=== PATIENT | male | born 1965 | race Caucasian/White ===

== ENCOUNTER 2023-07-14 07:57 | Outpatient (OUT) | payer MEDICARE, OTHER, SELFPAY ==
[2023-07-14 14:40] LABS: Chol HDL Ratio 2.7; Cholesterol 170 mg/dL (<=200); HDL Cholesterol 62 mg/dL (40-60); Triglycerides 111 mg/dL (<=150); VLDL CHOLESTEROL 22.2 mg/dL
== END 2023-07-14 07:58 | disposition home or self-care (01) ==
LOC: LAB 08:03
PROVIDERS: PCP Family Medicine; Visit Provider Nurse Practitioner
DX: E78.5 Hyperlipidemia, unspecified (principal)
CPT/HCPCS: 36415; 80061

== ENCOUNTER 2023-07-26 07:02 | Outpatient (OUT) | payer MEDICARE, OTHER, SELFPAY ==
--- NOTE | 2023-07-26 07:57 | CA_ITS ---
Patient: AYESHA MCKEON V. Exam Date: 07/26/2023 : 1965 Gender:M Ordering : BUNNY MORILLO Admission #: [id number] Family : Order #: [id number] CLICK HERE TO VIEW EXAM ECHOCARDIOGRAM REPORT PROCEDURE: CA ECHO DOPPLER COMPLETE INDICATIONS: Dyspnea COMPARISON: None. DESCRIPTION: COMPLETE ECHOCARDIOGRAM Real-time transthoracic echocardiography with 2D, M-mode, spectral and color flow Doppler performed. QUALITY: Technical quality was good. LEFT VENTRICLE: Normal chamber size. Borderline left ventricular hypertrophy. LV EF: Global left ventricular systolic function is hyperdynamic no significant wall motion abnormalities. Calculated left ventricular ejection fraction is 68%. DIASTOLIC: Norm diastolic function is indeterminate ATRIAL SEPTUM: Inadequately seen. LEFT ATRIUM: Mild dilatation. RIGHT ATRIUM: Mild dilatation. RIGHT VENTRICLE: Mild dilatation. Normal right ventricular systolic function. TRICUSPID VALVE: Normal mobility and thickness. No stenosis with mild regurgitation. Mild pulmonary hypertension. RVSP 35mmHg MITRAL VALVE: Normal mobility and thickness. No evidence of mitral valve stenosis. There is no mitral annular calcification. Mild mitral regurgitation. AORTIC VALVE: Normal trileaflet appearance. No visible sclerosis. Normal leaflet mobility. No evidence of aortic valve stenosis. Trivial aortic regurgitation. AORTIC ROOT: Normal diameter and appearance. PULMONIC VALVE: Normal thickness and mobility. No stenosis. Trivial regurgitation. PERICARDIUM: No evidence of pericardial effusion. IVC: Collapses with inspirations. Normal size. CONCLUSION: 1. Global left ventricular systolic function is hyperdynamic; visually estimated ejection fraction 65 to 70% 2. Borderline left ventricular hypertrophy 3. Diastolic function is indeterminate 4. Biatrial enlargement 5. The right ventricle is mildly dilated with normal systolic function 6. Mild tricuspid regurgitation; mildly elevated right ventricular systolic pressure 7. Mild mitral regurgitation Adult Echocardiography Procedure Report Left Ventricle LVEDD (3.7 - 5.6 cm): 4.65 cm LVESD (2.2 - 4.0 cm): 2.91 cm LVIVS thickness (0.6 - 1.2 cm): 1.04 cm LVPW thickness (0.5 - 1.0 cm): 1.06 cm e': 0.12 m/s E - e': 8.37 LVOT Max Gradient: 2.78 mm[Hg] LVOT Area (cm2): 0.83 m/s Peak Velocity (LVOT): 0.83 m/s Mean Velocity (LVOT): 0.57 m/s LVOT Diameter 1.90 cm Left Ventricular Ejection Fraction: 68.23 % Left Atrium LA Volume Index (2D A2C): 42.08 ml/m2 Left Atrium Systolic Dimension: 4.39 cm Mitral Valve MV E to A Ratio: 1.83 Mitral Valve A-Wave Peak Velocity: 0.55 m/s Mitral Valve E-Wave Peak Velocity: 1.01 m/s Right Ventricle RV Internal Diastolic Dimension: 4.10 cm Aorta AO Root Diam: 2.95 cm Ascending Ao Diam: 3.09 cm Aortic Valve AoV Area (Peak Ari): 1.78 cm2, 1.78 cm2 AoV Area (VTI): 1.82 cm2, 1.82 cm2 Peak Velocity(Antegrade Flow): 1.33 m/s Peak Gradient(Antegrade Flow): 7.04 mm[Hg] Mean Velocity(Antegrade Flow): 0.92 m/s Mean Gradient(Antegrade Flow): 3.87 mm[Hg] Velocity Time Integral: 32.61 cm Tricuspid Valve Peak Velocity (Regurgitant Flow): 2.20 m/s, 2.13 m/s, 2.85 m/s Pulmonic Valve Mean Gradient: 1.87 mm[Hg], 2.06 mm[Hg] Mean Velocity: 0.64 m/s, 0.67 m/s Peak Velocity: 0.93 m/s Peak Gradient: 3.33 mm[Hg], 3.57 mm[Hg] Right Atrium Right Atrium Systolic Pressure: 67.94 ml, 67.94 ml Dictated by: Deniz Valiente M.D. on 07/26/2023 at 15:20 Approved by: Deniz Valiente M.D. on 07/26/2023 at 15:25
== END 2023-07-26 07:03 | disposition home or self-care (01) ==
PROVIDERS: PCP Family Medicine; Visit Provider Internal Medicine Cardiovascular Disease
DX: R06.09 Other forms of dyspnea (principal); R60.0 Localized edema; I08.1 Rheumatic disorders of both mitral and tricuspid valves
CPT/HCPCS: 93306

== ENCOUNTER 2025-03-08 07:40 | Outpatient (OUT) | payer MEDICARE, OTHER, SELFPAY ==
--- NOTE | 2025-03-08 08:00 | CA_ITS ---
Patient Name: AYESHA MCKEON MR#: [id number] : 1965 Exam Date: 03/08/2025 Ordering Doctor: LUCAS SHRESTHA CNP ECHOCARDIOGRAM REPORT PROCEDURE: CA ECHO DOPPLER COMPLETE INDICATIONS: Coronary arteriosclerosis, h/o CABG, mitral valve regurgitation COMPARISON: None. DESCRIPTION: COMPLETE ECHOCARDIOGRAM Real-time transthoracic echocardiography with 2D, M-mode, spectral and color flow Doppler performed. QUALITY: Technical quality was good. LEFT VENTRICLE: Normal chamber size. Left ventricular wall thickness is upper normal limits. LV EF: Global left ventricular systolic function is normal; visually estimated ejection fraction is 55 to 60%. No significant wall motion abnormalities. DIASTOLIC: Normal diastolic function. ATRIAL SEPTUM: Visually appears intact. LEFT ATRIUM: Normal chamber size. RIGHT ATRIUM: Normal chamber size. RIGHT VENTRICLE: Normal chamber size. Decreased right ventricular systolic function. TRICUSPID VALVE: Normal mobility and thickness. No stenosis with mild regurgitation. Doppler studies reveal mildly (35-45) elevated right sided pressures. RVSP 37 mmHg MITRAL VALVE: Normal mobility and thickness. No evidence of mitral valve stenosis. There is no mitral annular calcification. Mild mitral regurgitation. AORTIC VALVE: Normal trileaflet appearance. No visible sclerosis. Normal leaflet mobility. No evidence of aortic valve stenosis. No aortic regurgitation. AORTIC ROOT: Normal diameter and appearance. Ascending aorta is normal in size. PULMONIC VALVE: Normal thickness and mobility. No stenosis. Trivial regurgitation. PERICARDIUM: No evidence of pericardial effusion. IVC: Collapses with inspirations. IVC is normal in size. CONCLUSION: 1. Global left ventricular systolic function is normal; visually estimated ejection fraction is 55 to 60% 2. The right ventricle is normal in size with reduced systolic function 3. Left ventricular wall thickness is upper normal limits 4. Normal diastolic function 5. The left atrium is normal in size 6. Mild tricuspid regurgitation 7. Mildly elevated right ventricular systolic pressure 8. Mild mitral regurgitation Adult Echocardiography Procedure Report Left Ventricle LVEDD (3.7 - 5.6 cm): 4.48 cm LVESD (2.2 - 4.0 cm): 3.21 cm LVIVS thickness (0.6 - 1.2 cm): 1.21 cm LVPW thickness (0.5 - 1.0 cm): 0.97 cm e': 0.12 m/s E - e': 7.68 LVOT Max Gradient: 3.12 mm[Hg] LVOT Area (cm2): 0.88 m/s Peak Velocity (LVOT): 0.88 m/s Mean Velocity (LVOT): 0.60 m/s LVOT Diameter 2.15 cm Left Atrium LA Volume Index (2D A2C): 32.04 ml/m2 Left Atrium Systolic Dimension: 4.78 cm Mitral Valve MV E to A Ratio: 1.72 Mitral Valve A-Wave Peak Velocity: 0.56 m/s Mitral Valve E-Wave Peak Velocity: 0.96 m/s Right Ventricle Aorta AO Root Diam: 3.13 cm Ascending Ao Diam: 3.23 cm Aortic Valve AoV Area (Peak Ari): 2.88 cm2, 2.88 cm2 AoV Area (VTI): 2.85 cm2, 2.85 cm2 Peak Velocity(Antegrade Flow): 1.11 m/s Peak Gradient(Antegrade Flow): 4.93 mm[Hg] Mean Velocity(Antegrade Flow): 0.73 m/s Mean Gradient(Antegrade Flow): 2.46 mm[Hg] Velocity Time Integral: 25.36 cm Tricuspid Valve Peak Velocity (Regurgitant Flow): 2.94 m/s Pulmonic Valve Mean Gradient: 2.39 mm[Hg] Mean Velocity: 0.72 m/s Peak Velocity: 1.04 m/s, 1.02 m/s Peak Gradient: 4.18 mm[Hg], 4.33 mm[Hg] Right Atrium Right Atrium Systolic Pressure: 44.72 ml, 44.72 ml Dictated by: Deniz Valiente M.D. on 03/08/2025 at 14:47 Approved by: Deniz Valiente M.D. on 03/08/2025 at 14:51
== END 2025-03-08 07:41 | disposition home or self-care (01) ==
LOC: CARD 07:41
PROVIDERS: PCP Family Medicine; Visit Provider Nurse Practitioner Family
DX: I25.10 Atherosclerotic heart disease of native coronary artery without angina pectoris (principal); I49.01 Ventricular fibrillation; Z95.1 Presence of aortocoronary bypass graft; I47.20 Ventricular tachycardia, unspecified
CPT/HCPCS: 93306

== ENCOUNTER 2025-03-29 08:47 | Outpatient (OUT) | payer MEDICARE, OTHER, SELFPAY ==
--- OUTSIDE RECORDS SUMMARY | 2024-04-17 05:00 | XMS_ITS | Encounter Summary ---
Author Name [facility] Organization [facility] Address [address] [place] [id number] Care Team Providers Care Product Development Scientist Name Role Phone KACY TURNER Primary Care Provider Unavail able Insurance Providers: All historical and current Section Date Range: From patient's date of to the date document was created. This section includes the names of all active insurance providers for the patient. Insurance Provider Type of Coverage Plan Name Start of Policy Coverage End of Policy Coverage Group Number Member ID Insurance Provider's Telephone Number Policy Muñiz's Name Patient's Relationship to Policy Muñiz MEDICARE (WNR) MEDICARE (M) PART A Aug 18, 2021 PART A [id number] [phone] AYESHA MCKEON PATIENT MEDICARE (WNR) MEDICARE (M) PART B Aug 18, 2021 PART B [id number] [phone] AYESHA MCKEON PATIENT Selected Encounter This section includes the information on record at [place] for the Encounter. Date/Time Encounter Type Encounter Description Reason Provider Source Apr 17, 2024 09:00 AM DETERMINE REFRACTIVE STATE OPTOMETRY ICD-10-CM H25.13 Age-related nuclear cataract, bilateral RIKY CORREA [facility] Encounter Template Text not used by [facility] Assessments - Encounter Diagnoses This section includes the primary and secondary diagnoses documented for the Encounter. Date/Time Primary/Secondary Diagnosis Diagnosis Name Provider Source Apr 17, 2024 09:28 AM PRIMARY Age-related nuclear cataract, bilateral [facility] Apr 17, 2024 09:28 AM SECONDARY Hypermetropia, bilateral [facility] Apr 17, 2024 09:28 AM SECONDARY Presbyopia [facility] Plan of Treatment: Future Appointments (+ 6 months) and Future Tests (+/- 45 days) The Plan of Treatment section includes future care activities for the patient from all [place] treatmentfacilities. This section includes future appointments and future orders which are active, pending or scheduled. Future Appointments This section includes appointments that were scheduled to occur 6 months from the date of the Encounter, up to a maximum of 20 appointments. The data comes from all [place] treatment facilities. Appointment Date/Time Appointment Type Appointme nt Facility Name Sep 18, 2024 08:30 AM AMBULATORY - NONE [facility] Sep 25, 2024 08:30 AM AMBULATORY - NONE [facility] Social History: Smoking Status (Most current) and Tobacco Use (All prior to encounter date) This section includes the most current, and the historical, smoking and tobacco- related health factors from the [place] facility where the Encounter took place. Current Smoking Status This section includes the most current smoking, or tobacco-related health factor, from the [facility] facility where the Encounter took place. Date/Time Current Smoking Status Comment Facil ity Sep 30, 2023 11:00 AM VA-TOBACCO NEVER USED [facility] Tobacco Use History This section includes a history of the smoking, or tobacco-related health factors, that were collected on or before the date of the Encounter. The data comes from the [place] facility where the Encounter took place. Date/Time Smoking Status/Tobacco Use Comment F acility Aug 25, 2022 09:00 AM VA-TOBACCO NEVER USED [facility] Sep 02, 2021 09:00 AM VA-TOBACCO NEVER USED [facility] Aug 01, 2018 11:39 AM VA-TOBACCO NEVER USED [facility] Jun 29, 2018 09:23 AM VA-TOBACCO NEVER USED [facility] Sep 06, 2015 08:47 AM LIFETIME NON-USER OF TOBACCO [facility] Jan 18, 2006 01:16 PM TOBACCO [place] NON USER [facility] Encounter Notes: All associated encounter notes This section contains the clinical notes associated to the Encounter. Date/Time Encounter Note(s) Provider Source Apr 17, 2024 08:57 AM OPTOMETRY NOTE: LOCAL TITLE: OPTOMETRY DISTRICT RANGER NOTE STANDARD TITLE: OPTOMETRY NOTE DATE OF NOTE: APR 17, 2024@08:57 ENTRY DATE: APR 17, 2024@08:57:25 AUTHOR: SAYRA HAINES EXP COSIGNER: RIKY CORREA URGENCY: STATUS: COMPLETED 59 Year old vet here today KATEY Last Eye exam: April 26 2023 GU/OPT Dr Correa Chief Complaint: patient reports no visual complaints or concerns today. Ocular History: (-)Surgery/trauma Ocular Medications: none Family Ocular History: Blindness/glaucoma/ARMD (-) Medical History: H/O ventricular fibrillation 07/26/2019 H/O: pacemaker in situ 05/27/2016 Coronary arteriosclerosis 09/06/2015 Mixed hyperlipidemia 09/06/2015 Family History of Ischemic Heart 01/18/2006 Active Medications: ATORVASTATIN CALCIUM 80MG TAB Qty: 90 ACTIVE Issu:08-29-20 METOPROLOL TARTRATE 25MG TAB Qty: 90 ACTIVE Issu:08-23-20 CLOPIDOGREL 75MG TAB Qty: 90 for 90 ACTIVE Issu:08-23-20 COENZYME Q10 CAP/TAB ASPIRIN (ENTERIC COATED) TAB,EC MULTIVITAMINS AND MINERALS (CENTRUM) TAB CHONDROITIN/GLUCOSAMINE CAP/TAB Allergies: patient states KNDA Current Rx: OD: +2.50 -0.50 X53 OS: +2.00 -0.25 X129 ADD: +2.25 VA: sRx OD: 20/ 20 OS: 20/ 20 EOMs: FULL OU PUPILS: ERRL -APD OU CF: FULL OU /jose/ SAYRA HAINES OPTOMETRY DISTRICT [facility]ER Signed: 04/17/2024 08:58 /es/ RIKY CORREA LODE MINER Cosigned: 04/17/2024 09:00 [facility]IN[facility] Apr 17, 2024 08:51 AM OPTOMETRY OUTPATIE NT NOTE: LOCAL TITLE: OPTOMETRY OUTPATIENT CLINIC NOTE (T) STANDARD TITLE: OPTOMETRY OUTPATIENT NOTE DATE OF NOTE: APR 17, 2024@08:51 ENTRY DATE: APR 17, 2024@08:51:49 AUTHOR: RIKY CORREA EXP COSIGNER: URGENCY: STATUS: COMPLETED 59 yowm here today for KATEY Last Eye exam: April 26, 2023 GU/OPT Dr Correa Chief Complaint: patient reports no visual complaints or concerns today Ocular History: (-) Surgery/trauma Ocular Medications: None Family Ocular History: Blindness/glaucoma/ARMD (-) Medical History: H/O ventricular fibrillation 07/26/2019 H/O: pacemaker in situ 05/27/2016 Coronary arteriosclerosis 09/06/2015 Mixed hyperlipidemia 09/06/2015 Family History of Ischemic Heart 01/18/2006 Active Medications: ATORVASTATIN CALCIUM 80MG TAB Qty: 90 ACTIVE Issu:08-29-20 METOPROLOL TARTRATE 25MG TAB Qty: 90 ACTIVE Issu:08-23-20 CLOPIDOGREL 75MG TAB Qty: 90 for 90 ACTIVE Issu:08-23-20 COENZYME Q10 CAP/TAB ASPIRIN (ENTERIC COATED) TAB,EC MULTIVITAMINS AND MINERALS (CENTRUM) TAB CHONDROITIN/GLUCOSAMINE CAP/TAB Allergies: patient states NKA Current Rx: OD: +2.50 -0.50 X053 OS: +2.00 -0.25 X129 ADD: +2.25 VA: cRx OD: 20/20 OS: 20/20 EOMs: FULL OU PUPILS: ERRL -APD OU CF: FULL OU Refraction: OD: +2.00 -0.50 x051 VA: 20/20 OS: +1.75 DS VA: 20/20 ADD: +2.25 Slit Lamp Exam: Lids and lashes: clear OU Conjunctiva: clear OU Cornea: clear OU Anterior chamber: d/q OU Angles: 4 n/t OU Iris: clear, (-) gladys OU Lens: OD: 1 NS OS: 1 NS Obtained informed consent from patient for use of DPA's, educated patient about side effects. 1 gt. Fluress OU, 1 gt. 1.0% Wheeler. OU, 1 gt. 2.5 % Phenyl. OU @ 9:07 AM Tonometry (A): @ 9:07 AM OD/OS: 17/18 (04/17/24) DFE: C/D: OD: 0.20/0.20 OS: 0.20/0.20 Posterior pole: clear OU Vessels: normal course/caliber OU Vitreous: clear OU Periphery: (-) holes/tears 360 OU Assessment/Plan: 1. Hyperopia c presb OU. Rx released to [facility]. 2. Nuclear Cataracts OU - stable. Monitor. 3. Int ocular health clear OU. Monitor 1 year c KATEY. RTC: 1 year KATEY /jose/ RIKY CORREA LODE MINER Signed: 04/17/2024 09:28 [facility]
--- OUTSIDE RECORDS SUMMARY | 2024-09-25 04:30 | XMS_ITS | Encounter Summary ---
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 Date/Time Encounter Type Encounter Description Reason Provider Source Sep 25, 2024 08:30 AM OFFICE O/P EST MOD 30 MIN PRIMARY CARE/MEDICINE ICD-10-CM E78.2 Mixed hyperlipidemia CORTNEY SUNSHINE Encounter Template Text not used by [place] Assessments - Encounter Diagnoses This section includes the primary and secondary diagnoses documented for the Encounter. Date/Time Primary/Secondary Diagnosis Diagnosis Name Provider Source Sep 25, 2024 08:51 AM PRIMARY Mixed hyperlipidemia CORTNEY SUNSHINE CB Sep 25, 2024 08:51 AM SECONDARY Athscl heart disease of [place] coronary artery w/o ang pctrs CORTNEY SUNSHINE CB Sep 25, 2024 08:51 AM SECONDARY Encounter for immunization [facility] SUNSHINE [facility] Sep 25, 2024 08:51 AM SECONDARY Presence of automatic (implantable) cardiac defibrillator [facility] SUNSHINE [facility] Sep 25, 2024 08:51 AM SECONDARY Ventricular fibrillation CORTNEY SUNSHINE [facility] Lab Results: +/- 30 days of the encounter This section includes the Chemistry and Hematology Lab Results [facility] record with [facility] for the [facility]. Radiology Reports and Pathology Reports are provided separately, in subsequent sections. Lab Results This section contains the Chemistry/Hematology Results that were resulted 30 days before or 30 daysafter the date of the Encounter. Date/Time Source Result Type Result - Unit Interpretation Reference Range Specimen Type Comment Sep 18, 2024 08:31 AM [facility] LIPID PROFILE PLASMA Specimen Type: PLASMA Comment: DLDLREF RANGE: NEAR OR ABOVE OPTIMAL: 100-129 mg/dL BORDERLINE DLDLHIGH: 130-159 mg/dL HIGH: 160-189 mg/dL VERY HIGH: >=190 TRIG REF RANGE: BORDERLINE HIGH: 150-199 mg/dL HIGH: 200-499 mg/dL TRIG VERY HIGH: >=500 mg/dL CREA eGFR was calculated using the CKD-EPI 2020 equation. CHOL REF RANGE: BORDERLINE HIGH: 200-239 mg/dL HIGH: >=240 mg/dL Ordering Provider: CORTNEY SUNSHINE Report Released Date/Time: Sep 30, 2023 11:36 AM Reporting Lab: [address] [id number] Performing Lab: [address] [phone] CHOLESTEROL 163 mg/dL <199 LDL CHOLESTEROL 93 mg/dL <99 HDL CHOLESTEROL 60 mg/dL >60 TRIGLYCERIDE 112 mg/dL <149 Sep 18, 2024 08:31 AM [facility] MAGNESIUM PLASMA Specimen Type: PLASMA Comment: DLDLREF RANGE: NEAR OR ABOVE OPTIMAL: 100-129 mg/dL BORDERLINE DLDLHIGH: 130-159 mg/dL HIGH: 160-189 mg/dL VERY HIGH: >=190 TRIG REF RANGE: BORDERLINE HIGH: 150-199 mg/dL HIGH: 200-499 mg/dL TRIG VERY HIGH: >=500 mg/dL CREA eGFR was calculated using the CKD-EPI 2020 equation. CHOL REF RANGE: BORDERLINE HIGH: 200-239 mg/dL HIGH: >=240 mg/dL Ordering Provider: CORTNEY SUNSHINE Report Released Date/Time: Sep 30, 2023 11:36 AM Reporting Lab: [address] [id number] Performing Lab: [place] [phone] MAGNESIUM 2.3 mg/dL 1.6-2.6 Sep 18, 2024 08:31 AM [facility] PROSTATE SPECIFIC ANTIGEN SERUM Speci men Type: SERUM No comment entered. Ordering Provider: CORTNEY SUNSHINE Report Released Date/Time: Sep 30, 2023 11:36 AM Reporting Lab: [place] [phone] Performing Lab: [place] [phone] PROSTATE SPECIFIC ANTIGEN 0.77 ng/mL <4. 00 Sep 18, 2024 08:31 AM [facility] CBC BLOOD Specimen Type: BLOOD No comment entered. Ordering Provider: CORTNEY SUNSHINE Report Released Date/Time: Sep 30, 2023 11:36 AM Reporting Lab: [address] [phone] Performing Lab: [place] [phone] WBC COUNT 6.1 10*3/uL 3.6-11.0 RBC COUNT 5.06 10*6/uL 4.47-5.83 HGB 16.2 g/dL 13.6-17.4 HCT 48.6 40.0-51.0 MCV 96.0 fL 80.0-96.0 MCH 32.1 pg H 27.0-31.0 MCHC 33.4 g/dL 31.5-36.5 PLT 164 10*3/uL 150-400 LYMPHS % 29.6 21.0-51.0 MONOCYTES % 9.5 H 4.0-8.0 NUCLEATED RBC/100WBC 0.0 /100{WBCs} RDW 12.5 11.2-15.8 NEUTROPHIL % 53.8 L 54.0-78.0 EOSINOPHIL % 6.4 H 0.0-3.0 BASOPHIL % 0.7 0.0-3.0 ABSOLUTE LYMPHOCYTE COUNT 1.8 10*3/uL 0. 8-5.0 ABSOLUTE NEUTROPHIL COUNT 3.3 10*3/uL 1. 9-8.6 ABSOLUTE BASOPHIL COUNT 0.0 10*3/uL 0.0- 0.3 ABSOLUTE MONOCYTE COUNT 0.6 10*3/uL 0.1- 0.9 ABSOLUTE EOSINOPHIL COUNT 0.4 10*3/uL H 0. 0-0.3 MPV 10.4 fL 7.4-11.4 Sep 18, 2024 08:31 AM [facility] COMPREHENSIVE METABOLIC PANEL PLASMA S pecimen Type: PLASMA Comment: DLDLREF RANGE: NEAR OR ABOVE OPTIMAL: 100-129 mg/dL BORDERLINE DLDLHIGH: 130-159 mg/dL HIGH: 160-189 mg/dL VERY HIGH: >=190 TRIG REF RANGE: BORDERLINE HIGH: 150-199 mg/dL HIGH: 200-499 mg/dL TRIG VERY HIGH: >=500 mg/dL CREA eGFR was calculated using the CKD-EPI 2020 equation. CHOL REF RANGE: BORDERLINE HIGH: 200-239 mg/dL HIGH: >=240 mg/dL Ordering Provider: CORTNEY SUNSHINE Report Released Date/Time: Sep 30, 2023 11:36 AM Reporting Lab: [address] [phone] Performing Lab: [address] [phone] ALBUMIN 4.7 g/dL 3.5-5.2 ALKALINE PHOSPHATASE 82 U/L 40-150 ALT/SGPT 42 U/L <55 AST/SGOT 35 U/L H 5-34 BUN 15 mg/dL 8.4-25.7 CALCIUM 9.3 mg/dL 8.8-10.0 CREATININE 1.0 mg/dL 0.72-1.25 CO2 25 mmol/L 22-29 GLUCOSE 96 mg/dL 74-100 PROTEIN, TOTAL 6.7 g/dL 6.4-8.3 SODIUM 138 mmol/L 136-145 CHLORIDE 106 mmol/L 98-107 BILIRUBIN, TOTAL 0.7 mg/dL 0.2-1.2 POTASSIUM 4.7 mmol/L 3.5-5.1 ANION GAP 12.0 mmol/L 10-20 EGFR (CALCULATED) 86.0 mL/min Immunizations: All administered on the encounter date This section contains immunizations associated to the Encounter. Immunization Series Date Issued Administered By Site Reaction Lot Number [id number] Drug Telephone Technician Comment(s) Source INFLUENZA, SPLIT VIRUS, TRIVALENT, PF Sep 25, 2024 RIKY PEOPLES LEFT DELTO ID [id number] AT [place], Patient tolerated injection well. [facility] Social History: Smoking Status (Most current) and Tobacco Use (All prior to encounter date) This section includes the most current, and the historical, smoking and tobacco- related health factors from the [place] facility where the Encounter took place. Current Smoking Status This section includes the most current smoking, or tobacco-related health factor, from the [place] facility where the Encounter took place. Date/Time Current Smoking Status Comment Facil ity Sep 30, 2023 11:00 AM [facility] NEVER USED [facility] Tobacco Use History This section includes a history of the smoking, or tobacco-related health factors, that were collected on or before the date of the Encounter. The data comes from the [place] facility where the Encounter took place. Date/Time [...] the Encounter. Date/Time Encounter Note(s) Provider Source Sep 25, 2024 08:24 AM INTERNAL MEDICINE OUTPATIENT NOTE: LOCAL TITLE: PRIMARY CARE OUTPATIENT NOTE (T) STANDARD TITLE: INTERNAL MEDICINE OUTPATIENT NOTE DATE OF NOTE: SEP 25, 2024@08:24 ENTRY DATE: SEP 25, 2024@08:24:21 AUTHOR: CORTNEY SUNSHINE COSIGNER: URGENCY: STATUS: COMPLETED PRIMARY CARE OUTPATIENT NOTE (T) Has ADDENDA In-person Note Emergency contact number obtained/confirmed. 59yo [place] Reason for Visit: cc: annual visit. cont with current meds. off aspirin per ranger aide. watching diet. stays physically active. denies any use of tobacco products. aver 2 drinks, 4 nights per week. aicd has not discharged hpi: 59y w/m with hx of mixed hyperlipidemia, cad with 3v cabg, vfib, s/p pacer/aicd. lmd - dr. delgado. cardio - dr. jay at [place] [facility] Active Problems PROBLEM LAST MOD PROVIDER H/O ventricular fibrillation 07/26/2019 CORTNEY SUNSHINE H/O: pacemaker in situ 05/27/2016 FLORECITA DAMON 2013 Coronary arteriosclerosis 09/06/2015 FLORECITA DAMON Mixed hyperlipidemia (SNOMED CT [id number]) 09/06/2015 FLORECITA DAMON Family History of Ischemic Heart Disease 01/18/2006 FLORECITA DAMON REVIEW OF SYSTEMS: const: (-) fever (-)chills (-)fatigue (-) changes in weight (-)night sweats heent: (-)headache (-)vision changes (-)hearing changes (-)tinnitis (-) earache (-)sore throat (-)nasal congestion (-)dysphagia (-odynophagia (-)hoarseness neck: (-)pain (-)stiffness (-)swelling lymph: (-)swollen (-)tender (-) cervical (-)axillary (-)inguinal endo: (-)polyuria (-)polydipsia (-)polyphagia (-)fatigue (-)weight gain/loss (-)heat or cold intolerance cor: (-)cp (-)sob (-)dizziness (-)palpitations (-)jo (-)edema (-)pnd (-)jo ()orthopnea pulm: (-)cough (-)congestion (-)sob (-)wheezing (-)pain with breathing (-)hemoptysis gi: (-)abd pain (-)nausea (-)vomitting (-)dysphagia (-)constipation (-) diarrhea (-)blood in stool (-)change in stool (-)dark stools (-)mucus in stool gu: (-)dysuria (-)frequency (-)urgency (-)malodorous (-)dribbling (-) hematuria (-)nocturia msk: (-)muscle pain (-)weakness (-)spasms (-)muscle tone (+)back pain (-)joint pain neuro: (-)headache (-)change in vision (-)weakness (-)change in memory (-)seizures (-)abnormal movements (-) tremors (-)radiculopathy integ: (-)rash (-)lesions (-)itching (-)xerosis psyche: (-)anxiety (-)depression (-)ptsd PATIENT ALLERGIES DETAILED ALLERGIES/ADVERSE REACTIONS No Known Allergies AMRS - MEDS (REC SUCCINCT) Active and Recently Inpatient, Outpatient and Clinic Medications (including Supplies): Active Outpatient Medications Status ======= 1) CLOPIDOGREL BISULFATE 75MG TAB TAKE ONE TABLET BY ACTIVE MOUTH EVERY DAY 2) EZETIMIBE 10MG TAB TAKE ONE TABLET BY MOUTH EVERY DAY ACTIVE 3) METOPROLOL TARTRATE 25MG TAB TAKE ONE-HALF TABLET BY ACTIVE MOUTH TWICE A DAY 4) ROSUVASTATIN CA 40MG TAB TAKE ONE TABLET BY MOUTH AT ACTIVE BEDTIME Active Non-VA Medications Status ======= 1) Non-VA ASPIRIN 81MG EC TAB 81MG MOUTH EVERY DAY ACTIVE 2) Non-VA CENTRUM MULTIVITAMINS AND MINERALS 1 TABLET ACTIVE MOUTH EVERY DAY 3) Non-VA CHONDROITIN/GLUCOSAMINE CAP/TAB 1 CAP/TAB ACTIVE MOUTH EVERY DAY 4) Non-VA COENZYME Q10 CAP/TAB MOUTH EVERY DAY, WITH ACTIVE BREAKFAST 8 Total Medications PHYSICAL EXAM: Vital Signs: T: 97.2 F [36.2 C] (09/25/2024 08:21) P: 65 (09/25/2024 08:21) R: 16 (09/25/2024 08:21) BP: 110/74 (09/25/2024 08:21) Pain: 0 (09/25/2024 08:21) Height: 68 in [172.7 cm] (08/25/2022 09:00) Weight: 200.4 lb [90.90 kg] (09/25/2024 08:21) Pulse Ox: 98% (09/25/2024 08:21) PE gen: 59y w/m alert ox4, well-groomed and dressed, ambulatory without assistive devices heent: normocephalic anicteric perrla eomi (+)corrective lenses. nares patent. eacs/tms without mayo, bulging or retractions. oral mucosa/hypopharynx moist and pink. uvula midline. no oral lesions noted neck: supple. trachea midline. no bruits noted lymph: no ant/post cerv adenopathy noted endo: no thyromegaly noted cor: hrrr without m, c or g chst: ctab. chst sym. (+)pacer/aicd left ant mid axillary area abd: soft, nt, nd, bs x4 ausc. no bruits/organomegaly noted msk: (+)5/5 ue/le prox and distally integ: no rashes/lesions noted neuro: pt alert ox4, perrla, eomi, cn 2-12 intact. gait normal. no tremors/abnormal movts noted psyche: mood/affect pleasant. recent/remote memory intact. ASSESSMENT/PLAN: 1) mixed hyperlipidemia- cont with rosuvastatin and zetia. reviewed a heart healthy diet. daily exercise 2) hx of cad with 3v cabg- asym. cont with asa/plavix/statin and bb. followed per cardio 3) hx of v fib - s/p pacer/aicd- asym. cont with current meds. keep f/u with cardio as scheduled. inst pt to call 911 or have someone drive him immed to nearest [facility] depart for eval if aicd should discharge 4) meds and labs reviewed with pt. copies provided to pt 5) reviewed a heart healthy diet of no added salt, diet low in fat, chol and processed foods. increase fluids, fruits, veg, fiber and bran in diet. daily exercise for 30 min, increase as tolerated HEALTH MAINTENANCE/CLINICAL REMINDERS: Clinical Reminders Activity Sexual Orientation: The patient thinks of their sexual orientation as: Straight or Heterosexual Avg Risk Colorectal Cancer Screen: AVERAGE RISK colorectal cancer screening is due based on information available to this clinical reminder FOBT/FIT (Fecal Immunochemical Testing) has been ordered. See order tab for details. MEDICATION RECONCILIATION Medication Reconciliation report reviewed and discussed with patient/caregiver. [facility] prescription medications, non-VA prescription medications, OTC and herbal medications reviewed: Patient/caregiver verifies that the list is complete and accurate and voices understanding. FOLLOW-UP: annual with labs 1-2 wks prior including cbc, cmp, mg, lipids and psa I am the Attending Physician. TOTAL TIME SPENT: Spent 26inutes in care of this patient today including review of records, exam, and placing orders. /jose/ CORTNEY SUNSHINE PHYSICIAN Signed: 09/25/2024 08:51 09/25/2024 ADDENDUM STATUS: COMPLETED Patient given FIT Kit and instructed to collect stool specimen next bowel movement, place date of specimen collection on vial, and mail same day. Patient verbalized understanding and agreed. /deborah PEOPLES LICENSED PRACTICAL NURSE Signed: 09/25/2024 09:28 12/07/2024 ADDENDUM STATUS: COMPLETED Telephone call placed to patient to remind to complete FIT Kit unanswered. LVM to return call. /deborah PEOPLES LICENSED PRACTICAL NURSE Signed: 12/07/2024 13:30 12/22/2024 ADDENDUM STATUS: COMPLETED Contacted vet and reminded to complete FIT kit. Vet verbalized understanding and agreed. /deborah PEOPLES LICENSED PRACTICAL NURSE Signed: 12/22/2024 14:06 [facility] Sep 25, 2024 08:23 AM PRIMARY CARE NURSI ARMANDO NOTE: LOCAL TITLE: OUTPATIENT NURSING INTAKE NOTE (T) STANDARD TITLE: PRIMARY CARE NURSING NOTE DATE OF NOTE: SEP 25, 2024@08:23 ENTRY DATE: SEP 25, 2024@08:23:14 AUTHOR: RIKY PEOPLES COSIGNER: URGENCY: STATUS: COMPLETED Hemoglobin A1C Results: No Hemoglobin A1C Results Review Allergies Allergies reviewed and updated per protocol. ALLERGIES/ADVERSE REACTIONS No Known Allergies MEDICATION LIST REVIEW REPORT Patient states no change in documented OTC/Herbals at this visit. 1. Has the patient been feeling sad or distressed? No 2. Has the patient been having personal or family problems? No 3. Has the patient been experiencing worry and/or stress? No 4. Has the patient been having problems with drugs and/or alcohol? No 5. [place] Crisis Line pocket card was provided to patient. No/patient declined [facility] MAP ([place] [place], [employer]) What matters most to you? Comment: Family Clinical Reminders Activity Alcohol Use Screen (AUDIT-C): Alcohol Screen: SCREEN FOR ALCOHOL (AUDIT-C) An alcohol screening test (AUDIT-C) was negative (score=4). 1. How often did you have a drink containing alcohol in the past year? Consider a drink to be a 12 ounce can or bottle of regular beer, 8 ounces of malt liquor, a 5 ounce glass of table wine, or a 1.5 ounce shot of liquor (like scotch, gin, or vodka). Four or more times a week 2. How many drinks containing alcohol did you have on a typical day when you were drinking in the past year? One or two drinks 3. How often did you have six or more drinks on one occasion in the past year? Never BMI Screening: At this visit, the health risks of obesity were reviewed and discussed with the patient, and the benefits of a weight management treatment program, such as [facility] was discussed and offered to the patient. Patient declines referral. After discussing the health risks of obesity and offering a referral to [facility] or another weight loss program outside the [facility], the patient DECLINES REFERRAL to [facility] or other weight loss program at this time. COVID-19 Immunization: Refused Pfizer Monovalent COVID-19 vaccine Immunization: COVID-19 (PFIZER), MRNA, LNP-S, PF, AMINA-SUCROSE, 30 MCG/0.3 ML (AGES 12+ YEARS) Refusal Reason: PATIENT DECISION Patient refuses all immunization(s) in the COVID-19 group Date Documented: 09/25/24 08:25 Depression Screening: Perform PHQ-2 A PHQ-2 screen was performed. The score was 0 which is a negative screen for depression. Over the past two weeks, how often have you been bothered by the following problems? 1. Little interest or pleasure in doing things Not at all 2. Feeling down, depressed, or hopeless Not at all Influenza Immunization: Influenza, Standard-Dose, Trivalent, Preservative Free (Fluarix-Syringe) Administered: INFLUENZA, SPLIT VIRUS, TRIVALENT, PF Date Administered: Sep 25, 2024 08:31 Telephone Technician: WUT Lot: [id number] Exp Date: Apr 16, 2025 [facility]: [phone] Admin Route/Site: INTRAMUSCULAR/LEFT DELTOID Dosage: 0.5mL Vaccine Information Statement(s): INFLUENZA(FLU) VACC(INACTIVATED OR RECOMBINANT)VIS May 23, 2021 ([place]) Order By: Policy Administered By: Riky Peoples Comment: Patient tolerated injection well. The Influenza Vaccine Information Statement (VIS) was reviewed with the patient/caregiver which lists the benefits and risks of the vaccine and the risks of not receiving the Influenza vaccine. The patient/caregiver denied any prior severe reaction to this vaccine or its components or a severe allergic reaction, such as anaphylaxis, to any vaccine or any injectable therapy. The patient/caregiver gave verbal consent to receive the vaccine. The patient was advised to remain in the facility for 15 minutes post vaccination. Patient Education Documentation: LEARNING NEEDS ASSESSMENT: Learning Preference: Hands-on Barriers to Learning: No Barriers to Learning Social Influences Related to Educational Needs: No social barriers to learning PTSD Screening: PC-PTSD-5 A PTSD screening test (PC-PTSD-5) was negative (score=0). IN THE PAST MONTH, have you ever had any experience that was so frightening, horrible or traumatic. For example: A serious accident or fire a physical or sexual assault or abuse An earthquake or flood A war Seeing someone be killed or seriously injured Having a loved one through homicide or suicide 1. Have you ever experienced this kind of event? NO 2. Had nightmares about the event(s) or thought about the event(s) when you did not want to? Response not required due to responses to other questions. 3. Tried hard not to think about the event(s) or went out of your way to avoid situations that reminded you of the event(s)? Response not required due to responses to other questions. 4. Been constantly on guard, watchful, or easily startled? Response not required due to responses to other questions. 5. [place] numb or detached from people, activities, or your surroundings? Response not required due to responses to other questions. 6. [place] guilty or unable to stop blaming yourself or others for the event(s) or any problems the event(s) may have caused? Response not required due to responses to other questions. Suicide Screen: C-SSRS Screening [place] Suicide Severity Rating Scale (C-SSRS) screener 1. Over the past month, have you wished you were or wished you could go to sleep and not wake up? No 2. Over the past month, have you had any actual thoughts of killing yourself? No 3. Over the past month, have you been thinking about how you might do this? Response not required due to responses to other questions. 4. Over the past month, have you had these thoughts and had some intention of acting on them? Response not required due to responses to other questions. 5. Over the past month, have you started to work out or worked out the details of how to kill yourself? Response not required due to responses to other questions. 6. If yes, at any time in the past month did you intend to carry out this plan? Response not required due to responses to other questions. 7. In your lifetime, have you ever done anything, started to do anything, or prepared to do anything to end your life (for example, collected pills, obtained a gun, gave away valuables, went to the roof but didn't jump)? No 8. If YES, was this within the past 3 months? Response not required due to responses to other questions. /jose/ RIKY PEOPLES LICENSED PRACTICAL NURSE Signed: 09/25/2024 08:32 RIKY PEOPLES OC
--- NOTE | 2025-03-29 08:00 | NM_ITS ---
Patient Name: AYESHA MCKEON MR#: [id number] : 1965 Exam Date: 03/29/2025 Ordering Doctor: LUCAS SHRESTHA CNP RADIOLOGY REPORT PROCEDURE: NM SILAS PERF SPECT REST STR COMPARISON: None. INDICATIONS: CORONARY ARTERY DISEASE, HISTORY OF CARDIAC ARREST, ABNORMAL ECHOCARDIOGRAM TECHNIQUE: Exam Description: Stress/Rest one day protocol gated SPECT Rest Imagin.9 mCi Tc-99m Cardiolite IV on 03/29/2025 Stress Imaging 30.7 mCi Tc-99m Cardiolite IV on 03/29/2025 Exercise Protocol: Jermaine Heart Rate (bpm): Rest: 54 Max: 141 PMHR: 88 Blood Pressure: Rest: 128/86 Max: 148/88 Exercise Time: Minutes: 8 Seconds: 47 Stage Reached: Stage: 3 Mets 10.1 Symptoms: Rest and peak stress ECG findings were pending, and the exercise portion of the study was pending per attending physician [facility]. For more details, please see separate cardiac stress test report. FINDINGS: QUALITY OF STUDY: Good PERFUSION DEFECT: LOCATION: N/A SIZE: N/A SEVERITY: N/A TYPE: N/A WALL MOTION: Normal wall motion LV SIZE: 82 mL. TID / TCD: 0.8 LVEF: Calculated EF 71%. SUMMARY: Myocardial perfusion imaging study is normal CONCLUSION: 1. Myocardial perfusion is normal with soft tissue attenuation 2. Global left ventricular systolic function is hyperdynamic 3. No significant transient ischemic dilatation Dictated by: Deniz Valiente M.D. on 03/30/2025 at 15:03 Approved by: Deniz Valiente M.D. on 03/30/2025 at 15:07
--- OUTSIDE RECORDS SUMMARY | 2025-03-29 08:50 | XMS_ITS | Continuity of Care Document ---
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 It does not include entries that were removed or entered in error. Problem Status Onset Date Problem Type Date of Resolution Comments Source CLOSED FRACTURE LEFT RING FINGER PIP WITH DISLOCATION Inactive Condition DoD CLOSED FRACTURE FINGERS IP JOINT WITH DISLOCATION Inactive Condition DoD Coronary arteriosclerosis Active Condition [facility] Family History of Ischemic Heart Disease Active Condition [facility] H/O ventricular fibrillation Active Condition [facility] H/O: pacemaker in situ Active Condition May 27, 2016 Entered By: FLORECITA DAMON Comment: 2013 [facility] Mixed hyperlipidemia (SNOMED CT [id number]) Active Condition [facility] Diagnosis: ICD-10-CM E78.2 Mixed hyperlipidemia Active Diagnosis [facility] Diagnosis: ICD-10-CM H25.13 Age-related nuclear cataract, bilateral Active Diagnosis [facility] Diagnosis: ICD-10-CM I25.10 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 Medication Details Route Status Patient Instructions Prescription Expires Prescription Number Last Dispense Date Ordering Provider Order Date Order Qty Source CHONDROITIN /GLUCOSAMIN E CAP/TAB TAKE 1 CAP/TAB BY MOUTH EVERY DAY ORAL ACTIVE MIRELLA ELY 2014 [facility] CLOPIDOGREL (U/D) 75 MG ORAL TAB TAKE ONE TABLET BY MOUTH EVERY DAY 09/30/2024 [id number] 4 CORTNEY SUNSHINE 2023 90 [place] [address] [facility] CLOPIDOGREL BISULFATE 75MG TAB TAKE ONE TABLET BY MOUTH EVERY DAY ORAL ACTIVE 10/17/2025 [id number] 5 DONOVAN LE 2024 90 [facility] CLOPIDOGREL BISULFATE 75MG TAB TAKE ONE TABLET BY MOUTH EVERY DAY ORAL DISCONT INUED 09/30/2024 [id number] 4 CORTNEY SUNSHINE 2022 90 [facility] COENZYME Q10 CAP/TAB TAKE BY MOUTH EVERY DAY, WITH BREAKFAS T ORAL ACTIVE VANESSA GOODWIN 2016 [facility] ezetimibe (U/D) 10 MG ORAL TAB TAKE ONE TABLET BY MOUTH EVERY DAY 09/30/2024 [id number] CORTNEY SUNSHINE 2023 90 [place] [facility] EZETIMIBE 10MG TAB TAKE ONE TABLET BY MOUTH EVERY DAY ORAL ACTIVE 12/29/2025 [id number] 5 CORTNEY SUNSHINE 2024 90 [facility] EZETIMIBE 10MG TAB TAKE ONE TABLET BY MOUTH EVERY DAY ORAL DISCONT INUED 09/30/2024 [id number] 4 CORTNEY SUNSHINE 2023 90 [facility] Metoprolol Tartrate (Lopressor) Tablet 25 mg Oral TAKE ONE-HALF TABLET BY MOUTH TWICE A DAY 09/30/2024 [id number] 4 CORTNEY SUNSHINE 2023 90 [place] [facility] METOPROLOL TARTRATE 25MG TAB TAKE ONE-HALF TABLET BY MOUTH TWICE A DAY ORAL ACTIVE 12/29/2025 [id number] 5 CORTNEY SUNSHINE 2024 90 [facility] METOPROLOL TARTRATE 25MG TAB TAKE ONE-HALF TABLET BY MOUTH TWICE A DAY ORAL DISCONT INUED 09/30/2024 [id number] 4 CORTNEY SUNSHINE 2023 90 [facility] MULTIVITAMI NS W/MINERALS TAB TAKE ONE TABLET BY MOUTH EVERY DAY ORAL ACTIVE MIRELLA ELY 2014 [facility] rosuvastati n (U/D) 40 MG ORAL TAB TAKE ONE TABLET BY MOUTH AT BEDTIME 09/30/2024 [id number] JONG CORTNEY R 2023 90 M[place]iree [facility] ROSUVASTATI N CA 40MG TAB TAKE ONE TABLET BY MOUTH AT BEDTIME ORAL ACTIVE 10/17/2025 [id number] 5 DONOVAN LE ARIN [place] 2024 90 [facility] ROSUVASTATI N CA 40MG TAB TAKE ONE TABLET BY MOUTH AT BEDTIME ORAL DISCONT INUED 09/30/2024 [id number] 4 JONG CORTNEY R 2022 90 [facility] Immunizations Combined list of available immunizations from the Department of Defense and Veterans Affairs facilities. Immunization Series Date Given Administered By Site Reaction Lot Number CVX Code Drug Neonatal Specialist Status Comments Source INFLUENZA, SPLIT VIRUS, TRIVALENT, PF 2023 RIKY CAMPOS DELTO ID [id number] 140 complet ed ADMINISTE RED AT OR, Patient tolerated injection well. [facility] INFLUENZA, INJECTABLE, QUADRIVALENT, PRESERVATIVE FREE 2022 RIKY CAMPOS LEFT DELTO ID [id number] 150 complet ed ADMINISTE RED AT OR, Patient tolerated injection well. [facility] INFLUENZA, INJECTABLE, QUADRIVALENT, PRESERVATIVE FREE 2021 150 complet ed [facility] PNEUMOCOCCAL CONJUGATE PCV20, POLYSACCHARID E [id number] CONJUGATE, ADJUVANT, PF 2021 216 complet ed [facility] influenza, injectable, quadrivalent, preservative free 2020 ABRAM, () Not Given influenza , injectabl e, quadrival ent, preservat nasrin free [facility] COVID-19, mRNA, LNP-S, PF, 30 mcg/0.3 mL dose 2020 ABRAM [employer] [place] (PFR) Not Given COVID-19, mRNA, LNP-S, PF, 30 mcg/0.3 mL dose DoD COVID-19 (PFIZER), MRNA, LNP-S, PF, 30 MCG/0.3 ML DOSE 3 2020 208 complet ed HISTORICA L INFORMATI ON - [facility]IST[facility], [facility] INFLU[facility], INJECTABLE, QUADRIVALENT, PRESERVATIVE FREE 3 2020 150 complet ed HISTORICA L INFORMATI ON - FROM OTHER REGISTRY, [facility] INFLUENZA, UNSPECIFIED FORMULATION [address] [facility] TDAP 1 2020 115 complet ed HISTORICA L INFORMATI ON - FROM OTHER REGISTRY, [facility] COVID-19, mRNA, LNP-S, PF, 30 mcg/0.3 mL dose 2020 [employer] [place] (PFR) Not Given COVID-19, mRNA, LNP-S, PF, 30 mcg/0.3 mL dose DoD COVID-19 (PFIZER), MRNA, LNP-S, PF, 30 MCG/0.3 ML DOSE 2 2020 208 complet ed HISTORICA L INFORMATI ON - FROM OTHER REGISTRY, [facility] COVID-19, mRNA, LNP-S, PF, 30 mcg/0.3 mL dose 2020 [employer] [place] (PFR) Not Given COVID-19, mRNA, LNP-S, PF, 30 mcg/0.3 mL dose DoD COVID-19 (InToTally), MRNA, LNP-S, PF, 30 MCG/0.3 ML DOSE 1 2020 208 complet ed HISTORICA L INFORMATI ON - FROM OTHER REGISTRY, [facility] INFLUENZA, UNSPECIFIED FORMULATION [address] [facility] Influenza, injectable, MDCK, preservative free, quadrivalent 2019 JORGE, () Not Given Influenza , injectabl e, MDCK, preservat nasrin free, quadrival ent [facility] INFLUENZA, INJECTABLE, MDCK, PRESERVATIVE FREE, QUADRIVALENT 2 2019 171 complet ed HISTORICA L INFORMATI ON - FROM OTHER REGISTRY, [facility] INFLUENZA, INJECTABLE, QUADRIVALENT, PRESERVATIVE FREE 2018 150 complet ed [facility] ZOSTER RECOMBINANT 2018 187 complet ed [facility] ZOSTER RECOMBINANT 1 2017 187 complet ed [facility] INFLUENZA, UNSPECIFIED FORMULATION 1 2016 88 complet ed HISTORICA L INFORMATI ON - FROM OTHER REGISTRY, [facility] Influenza, seasonal, injectable 2015 STEF, () Not Given Influenza , seasonal, injectabl e DoD TDAP 2015 115 complet ed [facility] INFLUENZA, SEASONAL, INJECTABLE, PRESERVATIVE FREE 2014 140 complet ed [facility] INFLUENZA, UNSPECIFIED FORMULATION 2014 88 complet ed [facility] PNEUMOCOCCAL POLYSACCHARID E PPV23 2014 33 complet ed [facility] PNEUMOCOCCAL, UNSPECIFIED FORMULATION 2014 109 complet ed [facility] Influenza, injectable, Madin [place] Canine Kidney, preservative free 19 2013 Unknown, Provider [id number] [employer]. (NOV) complet ed Influenza , injectabl e, Madin Xochilt Canine Kidney, preservat nasrin free DoD typhoid Vi capsular polysaccharid e vaccine 0 2013 [id number] Sanofi Pasteur ([facility]) complet ed typhoid Vi capsular polysacch aride vaccine DoD measles, mumps and rubella virus vaccine 2 2012 [id number] Merck (MSD) complet ed measles, mumps and rubella virus vaccine DoD Influenza, injectable, Madin [place] Canine Kidney, preservative free 18 2012 [id number] 153 [employer]. (NOV) complet ed Influenza , injectabl e, Madin Xochilt Canine Kidney, preservat nasrin free DoD Influenza, seasonal, injectable, preservative free 17 2011 [id number] 140 [facility] [employer] ([facility]) complet ed Influenza , seasonal, injectabl e, preservat nasrin free DoD anthrax vaccine 3 2011 [id number] 24 [facility]) complet ed anthrax vaccine DoD hepatitis B vaccine, adult dosage 3 2011 [id number] 43 [facility] ([facility] complet ed hepatitis B vaccine, adult dosage DoD tetanus toxoid, reduced diphtheria toxoid, and acellular pertu is vaccine, adsorbed 0 2011 [id number] 115 Sanofi Pasteur ([facility]) complet ed tetanus toxoid, reduced diphtheri a toxoid, and acellular pertussis vaccine, adsorbed DoD anthrax vaccine 2 2010 [id number] 24 [facility] ([facility]) complet ed anthrax vaccine DoD hepatitis B vaccine, adult dosage 2 2010 [id number] 43 [place] ([place]B) complet ed hepatitis B vaccine, adult dosage DoD Influenza, seasonal, injectable 16 2010 [id number] 141 [employer] (CSL) complet ed Influenza , seasonal, injectabl e DoD hepatitis B vaccine, pediatric or pediatric/ado lescent dosage 1 2010 [id number] 08 [facility] ([facility] complet ed hepatitis B vaccine, pediatric or pediatric /adolesce nt dosage DoD anthrax vaccine 1 2010 [id number] 24 [employer] [place] ([facility]) complet ed anthrax vaccine DoD typhoid Vi capsular polysaccharid e vaccine 1 2010 [id number] 101 Sanofi Pasteur ([facility]) complet ed typhoid Vi capsular polysacch aride vaccine DoD influenza virus vaccine, split virus (incl. purified surface antigen)-reti red CODE 1 2009 [id number] 15 [employer] (CSL) complet ed influenza virus vaccine, split virus (incl. purified surface antigen)- retired CODE [facility] Novel influenza-H1N 1-09, injectable 1 2009 [id number] 127 [employer]. (NOV) complet ed Novel influenza -V4A9-56, injectabl e DoD influenza virus vaccine, live, attenuated, for intranasal use 1 2008 [id number] 111 Veronica. (MED) complet ed influenza virus vaccine, live, attenuate d, for intranasa l use DoD typhoid Vi capsular polysaccharid e vaccine 1 2008 [id number] Sanofi Pasteur ([facility]) complet ed typhoid Vi capsular polysacch aride vaccine DoD influenza virus vaccine, split virus (incl. purified surface antigen)-reti red CODE 1 2007 [id number] 15 [employer] (SKB) complet ed influenza virus vaccine, split virus (incl. purified surface antigen)- retired CODE DoD meningococcal polysaccharid e vaccine (MPSV4) 1 2007 [id number] 32 Sanofi Pasteur ([facility]MC) complet ed meningoco ccal polysacch aride vaccine (MPSV4) DoD influenza virus vaccine, split virus (incl. purified surface antigen)-reti red CODE 1 2007 [id number] 15 [employer] (SKB) complet ed influenza virus vaccine, split virus (incl. purified surface antigen)- retired CODE DoD typhoid vaccine, parenteral, other than acetone-kille d, dried 1 2006 [id number] 41 Sanofi Pasteur ([facility]) complet ed typhoid vaccine, parentera l, other than acetone-k illed, dried DoD yellow fever vaccine 1 2006 [id number] 37 Sanofi Pasteur ([facility]) complet ed yellow fever vaccine DoD influenza virus vaccine, split virus (incl. purified surface antigen)-reti red CODE 1 2005 [id number] 15 Sanofi Pasteur ([facility]) complet ed influenza virus vaccine, split virus (incl. purified surface antigen)- retired CODE DoD tetanus and diphtheria toxoids, adsorbed, preservative free, for adult use (2 Lf of tetanus toxoid and 2 Lf of diphtheria toxoid) 1 2005 [id number] 09 Sanofi Pasteur ([facility]) complet ed tetanus and diphtheri a toxoids, adsorbed, preservat nasrin free, for adult use (2 Lf of tetanus toxoid and 2 Lf of diphtheri a toxoid) DoD influenza virus vaccine, split virus (incl. purified surface antigen)-reti red CODE 1 2005 [id number] 15 [employer] (PWJ) complet ed influenza virus vaccine, split virus (incl. purified surface antigen)- retired CODE DoD influenza virus vaccine, whole virus 1 2005 Unknown, Provider [id number] 16 [employer] (PWJ) complet ed influenza virus vaccine, whole virus DoD vaccinia (smallpox) vaccine 1 2004 [id number] Tess ([facility]) complet ed vaccinia (smallpox ) vaccine DoD tuberculin skin test; purified protein derivative solution, intradermal 1 2004 Unknown, Provider [id number] Other (OTH) complet ed tuberculi n skin test; purified protein derivativ e solution, intraderm al DoD influenza virus vaccine, whole virus 0 2004 [id number] 16 [employer] (PWJ) complet ed influenza virus vaccine, whole virus DoD typhoid Vi capsular polysaccharid e vaccine 0 2004 [id number] 101 Sanofi Pasteur ([facility]) complet ed typhoid Vi capsular polysacch aride vaccine DoD tuberculin skin test; purified protein derivative solution, intradermal 1 2003 Unknown, Provider [id number] [place] (PD) complet ed tuberculi n skin test; purified protein derivativ e solution, intraderm al DoD influenza virus vaccine, whole virus 0 2002 16 () complet ed influenza virus vaccine, whole virus DoD meningococcal polysaccharid e vaccine (MPSV4) 0 2002 32 () complet ed meningoco ccal polysacch aride vaccine (MPSV4) DoD tuberculin skin test; purified protein derivative solution, intradermal 1 2002 Unknown, Provider [id number] [place] (PD) complet ed tuberculi n skin test; purified protein derivativ e solution, intraderm al DoD influenza virus vaccine, whole virus 0 2002 [id number] 16 Sanofi Pasteur ([facility]) complet ed influenza virus vaccine, whole virus DoD typhoid Vi capsular polysaccharid e vaccine 0 2002 [id number] 101 Sanofi Pasteur ([facility]) complet ed typhoid Vi capsular polysacch aride vaccine DoD tuberculin skin test; purified protein derivative solution, intradermal 1 2001 Unknown, Provider [id number] Other (OT) complet ed tuberculi n skin test; purified protein derivativ e solution, intraderm al DoD influenza virus vaccine, whole virus 0 2001 [id number] 16 Sanofi Pasteur ([facility]) complet ed influenza virus vaccine, whole virus DoD typhoid vaccine, parenteral, other than acetone-kille d, dried 0 2000 [id number] 41 Sanofi Pasteur ([facility]) complet ed typhoid vaccine, parentera l, other than acetone-k illed, dried DoD tuberculin skin test; purified protein derivative solution, intradermal 1 2000 Unknown, Provider [id number] Other (OT) complet ed tuberculi n skin test; purified protein derivativ e solution, intraderm al DoD influenza virus vaccine, whole virus 0 2000 [id number] 16 Tess (Inactive) (AR) complet ed influenza virus vaccine, whole virus DoD tuberculin skin test; purified protein derivative solution, intradermal 1 1999 Unknown, Provider 96 () complet ed tuberculi n skin test; purified protein derivativ e solution, intraderm al DoD influenza virus vaccine, whole virus 0 [id number] 16 KskathleenFlorencia (WAL) complet ed influenza virus vaccine, whole virus DoD tuberculin skin test; purified protein derivative solution, intradermal 1 1997 Unknown, Provider [id number] [facility] ([facility] complet ed tuberculi n skin test; purified protein derivativ e solution, intraderm al DoD influenza virus vaccine, whole virus 0 [id number] 16 Lorrieluis (CON) complet ed influenza virus vaccine, whole virus DoD typhoid vaccine, parenteral, acetone-kille d, dried (U.S. ) 1 1997 [id number] [employer] [facility] (SI) complet ed typhoid vaccine, parentera l, acetone-k illed, dried ([place].S. ) DoD typhoid vaccine, live, oral 0 1997 [id number] 25 [employer] [facility] (SI) complet ed typhoid vaccine, live, oral DoD influenza virus vaccine, whole virus 0 1996 16 () complet ed influenza virus vaccine, whole virus DoD influenza virus vaccine, whole virus 0 1996 16 () complet ed influenza virus vaccine, whole virus DoD hepatitis A vaccine, adult dosage 2 1996 52 () complet ed hepatitis A vaccine, adult dosage DoD tuberculin skin test; purified protein derivative solution, intradermal 1 1996 Unknown, Provider 0 96 Lorriel[place] (CON) complet ed tuberculi n skin test; purified protein derivativ e solution, intraderm al DoD meningococcal polysaccharid e vaccine (MPSV4) 0 1996 32 () complet ed meningoco ccal polysacch aride vaccine (MPSV4) DoD hepatitis A vaccine, adult dosage 1 1995 52 () complet ed hepatitis A vaccine, adult dosage DoD yellow fever vaccine 0 1995 37 () complet ed yellow fever vaccine DoD tetanus and diphtheria toxoids, adsorbed, preservative free, for adult use (2 Lf of tetanus toxoid and 2 Lf of diphtheria toxoid) 0 1995 09 () complet ed tetanus and diphtheri a toxoids, adsorbed, preservat nasrin free, for adult use (2 Lf of tetanus toxoid and 2 Lf of diphtheri a toxoid) [facility] trivalent poliovirus vaccine, live, oral 0 1987 02 () complet ed trivalent polioviru s vaccine, live, oral DoD measles, mumps and rubella virus vaccine 0 1981 03 () complet ed measles, mumps and rubella virus vaccine DoD Results Combined list of recent chemistry, hematology and other laboratory results from Department of Defense and Veterans Affairs, ranging from 15 months to all on record, depending upon the facility. Order Name Results Value Reference Range Date Interpretation Specimen Comments Source OCCULT BLOOD FIT X1 SCREEN HEMOGLOBIN .GASTROINT ESTINAL.LO WER [PRESENCE] IN STOOL BY IMMUNOASSA Y Negative 01/02 Specimen Type: FECES No comment entered. Ordering Provider: MIRELLA SUNSHINE Report Released Date/Time: Sep 25, 2024 08:36 AM Reporting Lab: [address] [address] Performing Lab: [place] [id number] [facility] LIPID PROFILE CHOLESTERO L [MASS/VOLU ME] IN SERUM OR PLASMA 163 mg/dL <199 - 199 09/18 Specimen Type: PLASMA Comment: DLDLREF RANGE: NEAR OR ABOVE OPTIMAL: 100-129 mg/dL BORDERLINE DLDLHIGH: 130-159 mg/dL HIGH: 160-189 mg/dL VERY HIGH: >=190 TRIG REF RANGE: BORDERLINE HIGH: 150-199 mg/dL HIGH: 200-499 mg/dL TRIG VERY HIGH: >=500 mg/dL CREA eGFR was calculated using the CKD-EPI 2020 equation. CHOL REF RANGE: BORDERLINE HIGH: 200-239 mg/dL HIGH: >=240 mg/dL Ordering Provider: MIRELLA SUNSHINE Report Released Date/Time: Sep 30, 2023 11:36 AM Reporting Lab: [address] [address] Performing Lab: [place] [phone] [facility] LIPID PROFILE CHOLESTERO L IN LDL [MASS/VOLU ME] IN SERUM OR PLASMA BY DIRECT ASSAY 93 mg/dL <99 - 99 09/18 Specimen Type: PLASMA Comment: DLDLREF RANGE: NEAR OR ABOVE OPTIMAL: 100-129 mg/dL BORDERLINE DLDLHIGH: 130-159 mg/dL HIGH: 160-189 mg/dL VERY HIGH: >=190 TRIG REF RANGE: BORDERLINE HIGH: 150-199 mg/dL HIGH: 200-499 mg/dL TRIG VERY HIGH: >=500 mg/dL CREA eGFR was calculated using the CKD-EPI 2020 equation. CHOL REF RANGE: BORDERLINE HIGH: 200-239 mg/dL HIGH: >=240 mg/dL Ordering Provider: MIRELLA SUNSHINE Report Released Date/Time: Sep 30, 2023 11:36 AM Reporting Lab: [place] [phone] Performing Lab: [place] [id number] [place] [address] LIPID PROFILE CHOLESTERO L IN HDL [MASS/VOLU ME] IN SERUM OR PLASMA 60 mg/dL 60 09/18 Specimen Type: PLASMA Comment: DLDLREF RANGE: NEAR OR ABOVE OPTIMAL: 100-129 mg/dL BORDERLINE DLDLHIGH: 130-159 mg/dL HIGH: 160-189 mg/dL VERY HIGH: >=190 TRIG REF RANGE: BORDERLINE HIGH: 150-199 mg/dL HIGH: 200-499 mg/dL TRIG VERY HIGH: >=500 mg/dL CREA eGFR was calculated using the CKD-EPI 2020 equation. CHOL REF RANGE: BORDERLINE HIGH: 200-239 mg/dL HIGH: >=240 mg/dL Ordering Provider: MIRELLA SUNSHINE Report Released Date/Time: Sep 30, 2023 11:36 AM Reporting Lab: [place] [phone] Performing Lab: [address] LIPID PROFILE TRIGLYCERI DE [MASS/VOLU ME] IN SERUM OR PLASMA 112 mg/dL <149 - 149 09/18 Specimen Type: PLASMA Comment: DLDLREF RANGE: NEAR OR ABOVE OPTIMAL: 100-129 mg/dL BORDERLINE DLDLHIGH: 130-159 mg/dL HIGH: 160-189 mg/dL VERY HIGH: >=190 TRIG REF RANGE: BORDERLINE HIGH: 150-199 mg/dL HIGH: 200-499 mg/dL TRIG VERY HIGH: >=500 mg/dL CREA eGFR was calculated using the CKD-EPI 2020 equation. CHOL REF RANGE: BORDERLINE HIGH: 200-239 mg/dL HIGH: >=240 mg/dL Ordering Provider: MIRLELA SUNSHINE Report Released Date/Time: Sep 30, 2023 11:36 AM Reporting Lab: [place] [phone] Performing Lab: [place] [phone] [facility] MAGNESIU M MAGNESIUM [MASS/VOLU ME] IN SERUM OR PLASMA 2.3 mg/dL 1.6 - 2.6 09/18 Specimen Type: PLASMA Comment: DLDLREF RANGE: NEAR OR ABOVE OPTIMAL: 100-129 mg/dL BORDERLINE DLDLHIGH: 130-159 mg/dL HIGH: 160-189 mg/dL VERY HIGH: >=190 TRIG REF RANGE: BORDERLINE HIGH: 150-199 mg/dL HIGH: 200-499 mg/dL TRIG VERY HIGH: >=500 mg/dL CREA eGFR was calculated using the CKD-EPI 2020 equation. CHOL REF RANGE: BORDERLINE HIGH: 200-239 mg/dL HIGH: >=240 mg/dL Ordering Provider: MIRELLA SUNSHINE Report Released Date/Time: Sep 30, 2023 11:36 AM Reporting Lab: [address] [address] Performing Lab: [place] [phone] [facility] CBC LEUKOCYTES [#/VOLUME] IN BLOOD BY AUTOMATED COUNT 6.1 10*3/uL 3.6 - 11.0 09/18 Specimen Type: BLOOD No comment entered. Ordering Provider: MIRELLA SUNSHINE Report Released Date/Time: Sep 30, 2023 11:36 AM Reporting Lab: [address] [address] Performing Lab: [place] [phone] [facility] CBC ERYTHROCYT ES [#/VOLUME] IN BLOOD BY AUTOMATED COUNT 5.06 10*6/uL 4.47 - 5.83 09/18 Specimen Type: BLOOD No comment entered. Ordering Provider: MIRELLA SUNSHINE Report Released Date/Time: Sep 30, 2023 11:36 AM Reporting Lab: [address] [address] Performing Lab: [address] [phone] [facility] CBC HEMOGLOBIN [MASS/VOLU ME] IN BLOOD 16.2 g/dL 13.6 - 17.4 09/18 Specimen Type: BLOOD No comment entered. Ordering Provider: MIRELLA SUNSHINE Report Released Date/Time: Sep 30, 2023 11:36 AM Reporting Lab: [place] [phone] Performing Lab: [place] [id number] CBC HEMATOCRIT [VOLUME FRACTION] OF BLOOD BY AUTOMATED COUNT 48.6 40.0 - 51.0 09/18 Specimen Type: BLOOD No comment entered. Ordering Provider: MIRELLA SUNSHINE Report Released Date/Time: Sep 30, 2023 11:36 AM Reporting Lab: [place] [phone] Performing Lab: [place] [id number] CBC MCV [ENTITIC VOLUME] BY AUTOMATED COUNT 96.0 fL 80.0 - 96.0 09/18 Specimen Type: BLOOD No comment entered. Ordering Provider: MIRELLA SUNSHINE Report Released Date/Time: Sep 30, 2023 11:36 AM Reporting Lab: [place] [phone] Performing Lab: [place] [id number] CBC MCH [ENTITIC MASS] BY AUTOMATED COUNT 32.1 pg 27.0 - 31.0 09/18 H Specimen Type: BLOOD No comment entered. Ordering Provider: MIRELLA SUNSHINE Report Released Date/Time: Sep 30, 2023 11:36 AM Reporting Lab: [address] [address] Performing Lab: [place] [phone] [facility] CBC MCHC [MASS/VOLU ME] BY AUTOMATED COUNT 33.4 g/dL 31.5 - 36.5 09/18 Specimen Type: BLOOD No comment entered. Ordering Provider: MIRELLA SUNSHINE Report Released Date/Time: Sep 30, 2023 11:36 AM Reporting Lab: [address] [address] Performing Lab: [address] [address] [facility] CBC PLATELETS [#/VOLUME] IN BLOOD BY AUTOMATED COUNT 164 10*3/uL 150 - 400 09/18 Specimen Type: BLOOD No comment entered. Ordering Provider: MIRELLA SUNSHINE Report Released Date/Time: Sep 30, 2023 11:36 AM Reporting Lab: [address] [address] Performing Lab: [address] [address] [facility] CBC LYMPHOCYTE S/100 LEUKOCYTES IN BLOOD BY AUTOMATED COUNT 29.6 21.0 - 51.0 09/18 Specimen Type: BLOOD No comment entered. Ordering Provider: MIRELLA SUNSHINE Report Released Date/Time: Sep 30, 2023 11:36 AM Reporting Lab: [address] [address] Performing Lab: [place] [phone] [place] [address] CBC MONOCYTES/ 100 LEUKOCYTES IN BLOOD BY AUTOMATED COUNT 9.5 4.0 - 8.0 09/18 H Specimen Type: BLOOD No comment entered. Ordering Provider: MIRELLA SUNSHINE Report Released Date/Time: Sep 30, 2023 11:36 AM Reporting Lab: [address] [address] Performing Lab: [address] [id number] [place] [address] CBC NUCLEATED ERYTHROCYT ES/100 LEUKOCYTES [RATIO] IN BLOOD BY MANUAL COUNT 0.0 /100{WBC s} 09/18 Specimen Type: BLOOD No comment entered. Ordering Provider: MIRELLA SUNSHINE Report Released Date/Time: Sep 30, 2023 11:36 AM Reporting Lab: [address] [phone] Performing Lab: [address] [address] [facility] CBC ERYTHROCYT E DISTRIBUTI ON WIDTH [RATIO] BY AUTOMATED COUNT 12.5 11.2 - 15.8 09/18 Specimen Type: BLOOD No comment entered. Ordering Provider: MIRELLA SUNSHINE EX R Report Released Date/Time: Sep 30, 2023 11:36 AM Reporting Lab: [place] [phone] Performing Lab: [place] [phone] [place] [address] CBC NEUTROPHIL S/100 LEUKOCYTES IN BLOOD BY AUTOMATED COUNT 53.8 54.0 - 78.0 09/18 L Specimen Type: BLOOD No comment entered. Ordering Provider: MIRELLA SUNSHINE EX R Report Released Date/Time: Sep 30, 2023 11:36 AM Reporting Lab: [place] [phone] Performing Lab: [place] [id number] CBC EOSINOPHIL S/100 LEUKOCYTES IN BLOOD BY AUTOMATED COUNT 6.4 0.0 - 3.0 09/18 H Specimen Type: BLOOD No comment entered. Ordering Provider: MIRELLA SUNSHINE R Report Released Date/Time: Sep 30, 2023 11:36 AM Reporting Lab: [place] [phone] Performing Lab: [place] [id number] CBC BASOPHILS/ 100 LEUKOCYTES IN BLOOD BY AUTOMATED COUNT 0.7 0.0 - 3.0 09/18 Specimen Type: BLOOD No comment entered. Ordering Provider: MIRELLA SUNSHINE R Report Released Date/Time: Sep 30, 2023 11:36 AM Reporting Lab: [place] [phone] Performing Lab: [place] [id number] CBC LYMPHOCYTE S [#/VOLUME] IN BLOOD BY AUTOMATED COUNT 1.8 10*3/uL 0.8 - 5.0 09/18 Specimen Type: BLOOD No comment entered. Ordering Provider: MIRELLA SUNSHINE R Report Released Date/Time: Sep 30, 2023 11:36 AM Reporting Lab: [place] [phone] Performing Lab: [place] [phone] [facility] CBC NEUTROPHIL S [#/VOLUME] IN BLOOD 3.3 10*3/uL 1.9 - 8.6 09/18 Specimen Type: BLOOD No comment entered. Ordering Provider: MIRELLA SUNSHINE Report Released Date/Time: Sep 30, 2023 11:36 AM Reporting Lab: [place] [phone] Performing Lab: [place] [id number] CBC BASOPHILS [#/VOLUME] IN BLOOD BY AUTOMATED COUNT 0.0 10*3/uL 0.0 - 0.3 09/18 Specimen Type: BLOOD No comment entered. Ordering Provider: MIRELLA SUNSHINE Report Released Date/Time: Sep 30, 2023 11:36 AM Reporting Lab: [place] [phone] Performing Lab: [place] [id number] CBC MONOCYTES [#/VOLUME] IN BLOOD BY AUTOMATED COUNT 0.6 10*3/uL 0.1 - 0.9 09/18 Specimen Type: BLOOD No comment entered. Ordering Provider: MIRELLA SUNSHINE Report Released Date/Time: Sep 30, 2023 11:36 AM Reporting Lab: [place] [phone] Performing Lab: [place] [id number] CBC EOSINOPHIL S [#/VOLUME] IN BLOOD BY AUTOMATED COUNT 0.4 10*3/uL 0.0 - 0.3 09/18 H Specimen Type: BLOOD No comment entered. Ordering Provider: MIRELLA SUNSHINE Report Released Date/Time: Sep 30, 2023 11:36 AM Reporting Lab: [address] [phone] Performing Lab: [place] [id number] CBC PLATELET MEAN VOLUME [ENTITIC VOLUME] IN BLOOD BY AUTOMATED COUNT 10.4 fL 7.4 - 11.4 09/18 Specimen Type: BLOOD No comment entered. Ordering Provider: MIRELLA SUNSHINE Report Released Date/Time: Sep 30, 2023 11:36 AM Reporting Lab: [place] [phone] Performing Lab: [place] [phone] [facility] PROSTATE SPECIFIC ANTIGEN PROSTATE SPECIFIC AG [MASS/VOLU ME] IN SERUM OR PLASMA 0.77 ng/mL <4.00 - 4.00 09/18 Specimen Type: SERUM No comment entered. Ordering Provider: MIRELLA SUNSHINE R Report Released Date/Time: Sep 30, 2023 11:36 AM Reporting Lab: [place] [phone] Performing Lab: [place] [phone] [facility] COMPREHE NSIVE METABOLI C PANEL ALBUMIN [MASS/VOLU ME] IN SERUM OR PLASMA 4.7 g/dL 3.5 - 5.2 09/18 Specimen Type: PLASMA Comment: DLDLREF RANGE: NEAR OR ABOVE OPTIMAL: 100-129 mg/dL BORDERLINE DLDLHIGH: 130-159 mg/dL HIGH: 160-189 mg/dL VERY HIGH: >=190 TRIG REF RANGE: BORDERLINE HIGH: 150-199 mg/dL HIGH: 200-499 mg/dL TRIG VERY HIGH: >=500 mg/dL CREA eGFR was calculated using the CKD-EPI 2020 equation. CHOL REF RANGE: BORDERLINE HIGH: 200-239 mg/dL HIGH: >=240 mg/dL Ordering Provider: MIRELLA SUNSHINE R Report Released Date/Time: Sep 30, 2023 11:36 AM Reporting Lab: [place] [phone] Performing Lab: [place] [phone] [facility] COMPREHE NSIVE METABOLI C PANEL ALKALINE PHOSPHATAS E [ENZYMATIC ACTIVITY/V OLUME] IN SERUM OR PLASMA 82 U/L 40 - 150 09/18 Specimen Type: PLASMA Comment: DLDLREF RANGE: NEAR OR ABOVE OPTIMAL: 100-129 mg/dL BORDERLINE DLDLHIGH: 130-159 mg/dL HIGH: 160-189 mg/dL VERY HIGH: >=190 TRIG REF RANGE: BORDERLINE HIGH: 150-199 mg/dL HIGH: 200-499 mg/dL TRIG VERY HIGH: >=500 mg/dL CREA eGFR was calculated using the CKD-EPI 2020 equation. CHOL REF RANGE: BORDERLINE HIGH: 200-239 mg/dL HIGH: >=240 mg/dL Ordering Provider: MIRELLA SUNSHINE Report Released Date/Time: Sep 30, 2023 11:36 AM Reporting Lab: [place] [phone] Performing Lab: [place] [phone] [facility] COMPREHE NSIVE METABOLI C PANEL ALANINE AMINOTRANS FERASE [ENZYMATIC ACTIVITY/V OLUME] IN SERUM OR PLASMA 42 U/L <55 - 55 09/18 Specimen Type: PLASMA Comment: DLDLREF RANGE: NEAR OR ABOVE OPTIMAL: 100-129 mg/dL BORDERLINE DLDLHIGH: 130-159 mg/dL HIGH: 160-189 mg/dL VERY HIGH: >=190 TRIG REF RANGE: BORDERLINE HIGH: 150-199 mg/dL HIGH: 200-499 mg/dL TRIG VERY HIGH: >=500 mg/dL CREA eGFR was calculated using the CKD-EPI 2020 equation. CHOL REF RANGE: BORDERLINE HIGH: 200-239 mg/dL HIGH: >=240 mg/dL Ordering Provider: MIRELLA SUNSHINE Report Released Date/Time: Sep 30, 2023 11:36 AM Reporting Lab: [place] [phone] Performing Lab: [place] [phone] [place] [address] NSIVE METABOLI C PANEL ASPARTATE AMINOTRANS FERASE [ENZYMATIC ACTIVITY/V OLUME] IN SERUM OR PLASMA 35 U/L 5 - 34 09/18 H Specimen Type: PLASMA Comment: DLDLREF RANGE: NEAR OR ABOVE OPTIMAL: 100-129 mg/dL BORDERLINE DLDLHIGH: 130-159 mg/dL HIGH: 160-189 mg/dL VERY HIGH: >=190 TRIG REF RANGE: BORDERLINE HIGH: 150-199 mg/dL HIGH: 200-499 mg/dL TRIG VERY HIGH: >=500 mg/dL CREA eGFR was calculated using the CKD-EPI 2020 equation. CHOL REF RANGE: BORDERLINE HIGH: 200-239 mg/dL HIGH: >=240 mg/dL Ordering Provider: MIRELLA SUNSHINE R Report Released Date/Time: Sep 30, 2023 11:36 AM Reporting Lab: [place] [phone] Performing Lab: [place] [phone] [facility] COMPREHE NSIVE METABOLI C PANEL UREA NITROGEN [MASS/VOLU ME] IN SERUM OR PLASMA 15 mg/dL 8.4 - 25.7 09/18 Specimen Type: PLASMA Comment: DLDLREF RANGE: NEAR OR ABOVE OPTIMAL: 100-129 mg/dL BORDERLINE DLDLHIGH: 130-159 mg/dL HIGH: 160-189 mg/dL VERY HIGH: >=190 TRIG REF RANGE: BORDERLINE HIGH: 150-199 mg/dL HIGH: 200-499 mg/dL TRIG VERY HIGH: >=500 mg/dL CREA eGFR was calculated using the CKD-EPI 2020 equation. CHOL REF RANGE: BORDERLINE HIGH: 200-239 mg/dL HIGH: >=240 mg/dL Ordering Provider: MIRELLA SUNSHINE Report Released Date/Time: Sep 30, 2023 11:36 AM Reporting Lab: [place] [phone] Performing Lab: [place] [phone] [facility] COMPREHE NSIVE METABOLI C PANEL CALCIUM [MASS/VOLU ME] IN SERUM OR PLASMA 9.3 mg/dL 8.8 - 10.0 09/18 Specimen Type: PLASMA Comment: DLDLREF RANGE: NEAR OR ABOVE OPTIMAL: 100-129 mg/dL BORDERLINE DLDLHIGH: 130-159 mg/dL HIGH: 160-189 mg/dL VERY HIGH: >=190 TRIG REF RANGE: BORDERLINE HIGH: 150-199 mg/dL HIGH: 200-499 mg/dL TRIG VERY HIGH: >=500 mg/dL CREA eGFR was calculated using the CKD-EPI 2020 equation. CHOL REF RANGE: BORDERLINE HIGH: 200-239 mg/dL HIGH: >=240 mg/dL Ordering Provider: MIRELLA SUNSHINE Report Released Date/Time: Sep 30, 2023 11:36 AM Reporting Lab: [place] [phone] Performing Lab: [place] [phone] [facility] COMPREHE NSIVE METABOLI C PANEL CREATININE [MASS/VOLU ME] IN SERUM OR PLASMA 1.0 mg/dL 0.72 - 1.25 09/18 Specimen Type: PLASMA Comment: DLDLREF RANGE: NEAR OR ABOVE OPTIMAL: 100-129 mg/dL BORDERLINE DLDLHIGH: 130-159 mg/dL HIGH: 160-189 mg/dL VERY HIGH: >=190 TRIG REF RANGE: BORDERLINE HIGH: 150-199 mg/dL HIGH: 200-499 mg/dL TRIG VERY HIGH: >=500 mg/dL CREA eGFR was calculated using the CKD-EPI 2020 equation. CHOL REF RANGE: BORDERLINE HIGH: 200-239 mg/dL HIGH: >=240 mg/dL Ordering Provider: MIRELLA SUNSHINE Report Released Date/Time: Sep 30, 2023 11:36 AM Reporting Lab: [place] [phone] Performing Lab: [place] [phone] [place] [address] COMPREHE NSIVE METABOLI C PANEL CARBON DIOXIDE, TOTAL [MOLES/VOL UME] IN SERUM OR PLASMA 25 mmol/L 22 - 09/18 Specimen Type: PLASMA Comment: DLDLREF RANGE: NEAR OR ABOVE OPTIMAL: 100-129 mg/dL BORDERLINE DLDLHIGH: 130-159 mg/dL HIGH: 160-189 mg/dL VERY HIGH: >=190 TRIG REF RANGE: BORDERLINE HIGH: 150-199 mg/dL HIGH: 200-499 mg/dL TRIG VERY HIGH: >=500 mg/dL CREA eGFR was calculated using the CKD-EPI 2020 equation. CHOL REF RANGE: BORDERLINE HIGH: 200-239 mg/dL HIGH: >=240 mg/dL Ordering Provider: MIRELLA SUNSHINE Report Released Date/Time: Sep 30, 2023 11:36 AM Reporting Lab: [place] [phone] Performing Lab: [place] [phone] [place] [address] COMPREHE NSIVE METABOLI C PANEL GLUCOSE [MASS/VOLU ME] IN SERUM OR PLASMA 96 mg/dL 74 - 100 09/18 Specimen Type: PLASMA Comment: DLDLREF RANGE: NEAR OR ABOVE OPTIMAL: 100-129 mg/dL BORDERLINE DLDLHIGH: 130-159 mg/dL HIGH: 160-189 mg/dL VERY HIGH: >=190 TRIG REF RANGE: BORDERLINE HIGH: 150-199 mg/dL HIGH: 200-499 mg/dL TRIG VERY HIGH: >=500 mg/dL CREA eGFR was calculated using the CKD-EPI 2020 equation. CHOL REF RANGE: BORDERLINE HIGH: 200-239 mg/dL HIGH: >=240 mg/dL Ordering Provider: MIRELLA SUNSHINE Report Released Date/Time: Sep 30, 2023 11:36 AM Reporting Lab: [place] [phone] Performing Lab: [place] [phone] [facility] COMPREHE NSIVE METABOLI C PANEL PROTEIN [MASS/VOLU ME] IN SERUM OR PLASMA 6.7 g/dL 6.4 - 8.3 09/18 Specimen Type: PLASMA Comment: DLDLREF RANGE: NEAR OR ABOVE OPTIMAL: 100-129 mg/dL BORDERLINE DLDLHIGH: 130-159 mg/dL HIGH: 160-189 mg/dL VERY HIGH: >=190 TRIG REF RANGE: BORDERLINE HIGH: 150-199 mg/dL HIGH: 200-499 mg/dL TRIG VERY HIGH: >=500 mg/dL CREA eGFR was calculated using the CKD-EPI 2020 equation. CHOL REF RANGE: BORDERLINE HIGH: 200-239 mg/dL HIGH: >=240 mg/dL Ordering Provider: MIRELLA SUNSHINE Report Released Date/Time: Sep 30, 2023 11:36 AM Reporting Lab: [place] [phone] Performing Lab: [place] [phone] [facility] COMPREHE NSIVE METABOLI C PANEL SODIUM [MOLES/VOL UME] IN SERUM OR PLASMA 138 mmol/L 136 - 145 09/18 Specimen Type: PLASMA Comment: DLDLREF RANGE: NEAR OR ABOVE OPTIMAL: 100-129 mg/dL BORDERLINE DLDLHIGH: 130-159 mg/dL HIGH: 160-189 mg/dL VERY HIGH: >=190 TRIG REF RANGE: BORDERLINE HIGH: 150-199 mg/dL HIGH: 200-499 mg/dL TRIG VERY HIGH: >=500 mg/dL CREA eGFR was calculated using the CKD-EPI 2020 equation. CHOL REF RANGE: BORDERLINE HIGH: 200-239 mg/dL HIGH: >=240 mg/dL Ordering Provider: MIRELLA SUNSHINE Report Released Date/Time: Sep 30, 2023 11:36 AM Reporting Lab: [place] [phone] Performing Lab: [place] [phone] COMPREHE NSIVE METABOLI C PANEL CHLORIDE [MOLES/VOL UME] IN SERUM OR PLASMA 106 mmol/L 98 - 107 09/18 Specimen Type: PLASMA Comment: DLDLREF RANGE: NEAR OR ABOVE OPTIMAL: 100-129 mg/dL BORDERLINE DLDLHIGH: 130-159 mg/dL HIGH: 160-189 mg/dL VERY HIGH: >=190 TRIG REF RANGE: BORDERLINE HIGH: 150-199 mg/dL HIGH: 200-499 mg/dL TRIG VERY HIGH: >=500 mg/dL CREA eGFR was calculated using the CKD-EPI 2020 equation. CHOL REF RANGE: BORDERLINE HIGH: 200-239 mg/dL HIGH: >=240 mg/dL Ordering Provider: MIRELLA SUNSHINE Report Released Date/Time: Sep 30, 2023 11:36 AM Reporting Lab: [place] [phone] Performing Lab: [place] [phone] COMPREHE NSIVE METABOLI C PANEL BILIRUBIN. TOTAL [MASS/VOLU ME] IN SERUM OR PLASMA 0.7 mg/dL 0.2 - 1.2 09/18 Specimen Type: PLASMA Comment: DLDLREF RANGE: NEAR OR ABOVE OPTIMAL: 100-129 mg/dL BORDERLINE DLDLHIGH: 130-159 mg/dL HIGH: 160-189 mg/dL VERY HIGH: >=190 TRIG REF RANGE: BORDERLINE HIGH: 150-199 mg/dL HIGH: 200-499 mg/dL TRIG VERY HIGH: >=500 mg/dL CREA eGFR was calculated using the CKD-EPI 2020 equation. CHOL REF RANGE: BORDERLINE HIGH: 200-239 mg/dL HIGH: >=240 mg/dL Ordering Provider: MIRELLA SUNSHINE Report Released Date/Time: Sep 30, 2023 11:36 AM Reporting Lab: [place] [phone] Performing Lab: [place] [phone] [facility] COMPREHE NSIVE METABOLI C PANEL POTASSIUM [MOLES/VOL UME] IN SERUM OR PLASMA 4.7 mmol/L 3.5 - 5.1 09/18 Specimen Type: PLASMA Comment: DLDLREF RANGE: NEAR OR ABOVE OPTIMAL: 100-129 mg/dL BORDERLINE DLDLHIGH: 130-159 mg/dL HIGH: 160-189 mg/dL VERY HIGH: >=190 TRIG REF RANGE: BORDERLINE HIGH: 150-199 mg/dL HIGH: 200-499 mg/dL TRIG VERY HIGH: >=500 mg/dL CREA eGFR was calculated using the CKD-EPI 2020 equation. CHOL REF RANGE: BORDERLINE HIGH: 200-239 mg/dL HIGH: >=240 mg/dL Ordering Provider: MIRELLA SUNSHINE Report Released Date/Time: Sep 30, 2023 11:36 AM Reporting Lab: [place] [phone] Performing Lab: [place] [phone] [place] [address] COMPREHE NSIVE METABOLI C PANEL ANION GAP IN SERUM OR PLASMA 12.0 mmol/L - 20 09/18 Specimen Type: PLASMA Comment: DLDLREF RANGE: NEAR OR ABOVE OPTIMAL: 100-129 mg/dL BORDERLINE DLDLHIGH: 130-159 mg/dL HIGH: 160-189 mg/dL VERY HIGH: >=190 TRIG REF RANGE: BORDERLINE HIGH: 150-199 mg/dL HIGH: 200-499 mg/dL TRIG VERY HIGH: >=500 mg/dL CREA eGFR was calculated using the CKD-EPI 2020 equation. CHOL REF RANGE: BORDERLINE HIGH: 200-239 mg/dL HIGH: >=240 mg/dL Ordering Provider: MIRELLA SUNSHINE Report Released Date/Time: Sep 30, 2023 11:36 AM Reporting Lab: [place] [phone] Performing Lab: [place] [phone] [facility] COMPREH NSIVE METABOLI C PANEL GLOMERULAR FILTRATION RATE/1.73 SQ M.PREDICTE D [VOLUME RATE/AREA] IN SERUM, PLASMA OR BLOOD BY CREATININE -BASED FORMULA (CKD-EPI 2020) 86.0 mL/min 09/18 Specimen Type: PLASMA Comment: DLDLREF RANGE: NEAR OR ABOVE OPTIMAL: 100-129 mg/dL BORDERLINE DLDLHIGH: 130-159 mg/dL HIGH: 160-189 mg/dL VERY HIGH: >=190 TRIG REF RANGE: BORDERLINE HIGH: 150-199 mg/dL HIGH: 200-499 mg/dL TRIG VERY HIGH: >=500 mg/dL CREA eGFR was calculated using the CKD-EPI 2020 equation. CHOL REF RANGE: BORDERLINE HIGH: 200-239 mg/dL HIGH: >=240 mg/dL Ordering Provider: MIRELLA SUNSHINE Report Released Date/Time: Sep 30, 2023 11:36 AM Reporting Lab: [place] [phone] Performing Lab: [place] [id number] LIPID PROFILE CHOLESTERO L [MASS/VOLU ME] IN SERUM OR PLASMA 155 mg/dL 135 - 200 09/06 Specimen Type: PLASMA Comment: CREATININE eGFR was calculated using the CKD-EPI 2020 equation. TRIGLYCERID E REF RANGE: NORMAL <150 mg/dL BORDERLINE HIGH: 150-199 TRIGLYCERID E mg/dL HIGH: 200-499 mg/dL VERY HIGH: >=500 mg/dL Ordering Provider: MIRELLA SUNSHINE Report Released Date/Time: Sep 04, 2023 12:20 PM Reporting Lab: [place] [phone] Performing Lab: [place] [phone] LIPID PROFILE CHOLESTERO L IN LDL [MASS/VOLU ME] IN SERUM OR PLASMA BY DIRECT ASSAY 95.0 mg/dL 0 - 110 09/06 Specimen Type: PLASMA Comment: CREATININE eGFR was calculated using the CKD-EPI 2020 equation. TRIGLYCERID E REF RANGE: NORMAL <150 mg/dL BORDERLINE HIGH: 150-199 TRIGLYCERID E mg/dL HIGH: 200-499 mg/dL VERY HIGH: >=500 mg/dL Ordering Provider: MIRELLA SUNSHINE Report Released Date/Time: Sep 04, 2023 12:20 PM Reporting Lab: [address] [phone] Performing Lab: [place] [phone] [facility] LIPID PROFILE CHOLESTERO L IN HDL [MASS/VOLU ME] IN SERUM OR PLASMA 51 mg/dL 40 - 60 09/06 Specimen Type: PLASMA Comment: CREATININE eGFR was calculated using the CKD-EPI 2020 equation. TRIGLYCERID E REF RANGE: NORMAL <150 mg/dL BORDERLINE HIGH: 150-199 TRIGLYCERID E mg/dL HIGH: 200-499 mg/dL VERY HIGH: >=500 mg/dL Ordering Provider: MIRELLA SUNSHINE Report Released Date/Time: Sep 04, 2023 12:20 PM Reporting Lab: [place] [phone] Performing Lab: [place] [id number] LIPID PROFILE TRIGLYCERI DE [MASS/VOLU ME] IN SERUM OR PLASMA 118 mg/dL 0 - 149 09/06 Specimen Type: PLASMA Comment: CREATININE eGFR was calculated using the CKD-EPI 2020 equation. TRIGLYCERID E REF RANGE: NORMAL <150 mg/dL BORDERLINE HIGH: 150-199 TRIGLYCERID E mg/dL HIGH: 200-499 mg/dL VERY HIGH: >=500 mg/dL Ordering Provider: MIRELLA SUNSHINE Report Released Date/Time: Sep 04, 2023 12:20 PM Reporting Lab: [place] [phone] Performing Lab: [place] [phone] MAGNESIU M MAGNESIUM [MASS/VOLU ME] IN SERUM OR PLASMA 2.2 mg/dL 1.8 - 2.4 09/06 Specimen Type: PLASMA Comment: CREATININE eGFR was calculated using the CKD-EPI 2020 equation. TRIGLYCERID E REF RANGE: NORMAL <150 mg/dL BORDERLINE HIGH: 150-199 TRIGLYCERID E mg/dL HIGH: 200-499 mg/dL VERY HIGH: >=500 mg/dL Ordering Provider: MIRELLA SUNSHINE Report Released Date/Time: Sep 04, 2023 12:20 PM Reporting Lab: [place] [phone] Performing Lab: [place] [phone] [facility] CBC LEUKOCYTES [#/VOLUME] IN BLOOD BY AUTOMATED COUNT 6.0 10*3/uL 3.6 - 11.0 09/06 Specimen Type: BLOOD No comment entered. Ordering Provider: MIRELLA SUNSHINE Report Released Date/Time: Sep 04, 2023 12:20 PM Reporting Lab: [place] [phone] Performing Lab: [place] [phone] [place] [address] CBC ERYTHROCYT ES [#/VOLUME] IN BLOOD BY AUTOMATED COUNT 4.93 10*6/uL 4.47 - 5.83 09/06 Specimen Type: BLOOD No comment entered. Ordering Provider: MIRELLA SUNSHINE R Report Released Date/Time: Sep 04, 2023 12:20 PM Reporting Lab: [place] [phone] Performing Lab: [place] [id number] CBC HEMOGLOBIN [MASS/VOLU ME] IN BLOOD 16.2 g/dL 13.6 - 17.4 09/06 Specimen Type: BLOOD No comment entered. Ordering Provider: MIRELLA SUNSHINE Report Released Date/Time: Sep 04, 2023 12:20 PM Reporting Lab: [place] [phone] Performing Lab: [place] [id number] CBC HEMATOCRIT [VOLUME FRACTION] OF BLOOD BY AUTOMATED COUNT 46.5 40.0 - 51.0 09/06 Specimen Type: BLOOD No comment entered. Ordering Provider: MIRELLA SUNSHINE Report Released Date/Time: Sep 04, 2023 12:20 PM Reporting Lab: [place] [phone] Performing Lab: [place] [phone] [facility] CBC MCV [ENTITIC VOLUME] BY AUTOMATED COUNT 94.3 fL 80.0 - 96.0 09/06 Specimen Type: BLOOD No comment entered. Ordering Provider: MIRELLA SUNSHINE R Report Released Date/Time: Sep 04, 2023 12:20 PM Reporting Lab: [place] [phone] Performing Lab: [place] [phone] [facility] CBC MCH [ENTITIC MASS] BY AUTOMATED COUNT 33.0 pg 27.0 - 31.0 09/06 H Specimen Type: BLOOD No comment entered. Ordering Provider: MIRELLA SUNSHINE Report Released Date/Time: Sep 04, 2023 12:20 PM Reporting Lab: [place] [phone] Performing Lab: [place] [phone] [facility] CBC MCHC [MASS/VOLU ME] BY AUTOMATED COUNT 34.9 g/dL 31.5 - 36.5 09/06 Specimen Type: BLOOD No comment entered. Ordering Provider: MIRELLA SUNSHINE Report Released Date/Time: Sep 04, 2023 12:20 PM Reporting Lab: [place] [phone] Performing Lab: [place] [id number] CBC PLATELETS [#/VOLUME] IN BLOOD BY AUTOMATED COUNT 150 10*3/uL 150 - 400 09/06 Specimen Type: BLOOD No comment entered. Ordering Provider: MIRELLA SUNSHINE Report Released Date/Time: Sep 04, 2023 12:20 PM Reporting Lab: [place] [phone] Performing Lab: [place] [phone] [facility] CBC LYMPHOCYTE S/100 LEUKOCYTES IN BLOOD BY AUTOMATED COUNT 29.8 21.0 - 51.0 09/06 Specimen Type: BLOOD No comment entered. Ordering Provider: MIRELLA SUNSHINE Report Released Date/Time: Sep 04, 2023 12:20 PM Reporting Lab: [place] [phone] Performing Lab: [place] [phone] [facility] CBC MONOCYTES/ 100 LEUKOCYTES IN BLOOD BY AUTOMATED COUNT 8.1 4.0 - 8.0 09/06 H Specimen Type: BLOOD No comment entered. Ordering Provider: MIRELLA SUNSHINE R Report Released Date/Time: Sep 04, 2023 12:20 PM Reporting Lab: [address] [address] Performing Lab: [address] [phone] [facility] CBC NUCLEATED ERYTHROCYT ES/100 LEUKOCYTES [RATIO] IN BLOOD BY MANUAL COUNT 0.1 /100{WBC s} 09/06 Specimen Type: BLOOD No comment entered. Ordering Provider: MIRELLA SUNSHINE Report Released Date/Time: Sep 04, 2023 12:20 PM Reporting Lab: [address] [phone] Performing Lab: [address] [address] [facility] CBC ERYTHROCYT E DISTRIBUTI ON WIDTH [RATIO] BY AUTOMATED COUNT 12.5 11.2 - 15.8 09/06 Specimen Type: BLOOD No comment entered. Ordering Provider: MIRELLA SUNSHINE Report Released Date/Time: Sep 04, 2023 12:20 PM Reporting Lab: [place] [phone] Performing Lab: [place] [phone] [facility] CBC NEUTROPHIL S/100 LEUKOCYTES IN BLOOD BY AUTOMATED COUNT 56.7 54.0 - 78.0 09/06 Specimen Type: BLOOD No comment entered. Ordering Provider: MIRELLA SUNSHINE Report Released Date/Time: Sep 04, 2023 12:20 PM Reporting Lab: [address] [phone] Performing Lab: [place] [phone] [facility] CBC EOSINOPHIL S/100 LEUKOCYTES IN BLOOD BY AUTOMATED COUNT 5.0 0.0 - 3.0 09/06 H Specimen Type: BLOOD No comment entered. Ordering Provider: MIRELLA SUNSHINE Report Released Date/Time: Sep 04, 2023 12:20 PM Reporting Lab: [address] [phone] Performing Lab: [address] [address] [facility] CBC BASOPHILS/ 100 LEUKOCYTES IN BLOOD BY AUTOMATED COUNT 0.4 0.0 - 3.0 09/06 Specimen Type: BLOOD No comment entered. Ordering Provider: MIRELLA SUNSHINE R Report Released Date/Time: Sep 04, 2023 12:20 PM Reporting Lab: [place] [phone] Performing Lab: [place] [phone] [place] [address] CBC LYMPHOCYTE S [#/VOLUME] IN BLOOD BY AUTOMATED COUNT 1.8 10*3/uL 0.8 - 5.0 09/06 Specimen Type: BLOOD No comment entered. Ordering Provider: MIRELLA SUNSHINE R Report Released Date/Time: Sep 04, 2023 12:20 PM Reporting Lab: [place] [phone] Performing Lab: [place] [id number] CBC NEUTROPHIL S [#/VOLUME] IN BLOOD 3.4 10*3/uL 1.9 - 8.6 09/06 Specimen Type: BLOOD No comment entered. Ordering Provider: MIRELLA SUNSHINE R Report Released Date/Time: Sep 04, 2023 12:20 PM Reporting Lab: [place] [phone] Performing Lab: [place] [id number] CBC BASOPHILS [#/VOLUME] IN BLOOD BY AUTOMATED COUNT 0.0 10*3/uL 0.0 - 0.3 09/06 Specimen Type: BLOOD No comment entered. Ordering Provider: MIRELLA SUNSHINE R Report Released Date/Time: Sep 04, 2023 12:20 PM Reporting Lab: [place] [phone] Performing Lab: [place] [phone] [place] [address] CBC MONOCYTES [#/VOLUME] IN BLOOD BY AUTOMATED COUNT 0.5 10*3/uL 0.1 - 0.9 09/06 Specimen Type: BLOOD No comment entered. Ordering Provider: MIRELLA SUNSHINE R Report Released Date/Time: Sep 04, 2023 12:20 PM Reporting Lab: [place] [phone] Performing Lab: [address] [phone] [facility] CBC EOSINOPHIL S [#/VOLUME] IN BLOOD BY AUTOMATED COUNT 0.3 10*3/uL 0.0 - 0.3 09/06 Specimen Type: BLOOD No comment entered. Ordering Provider: MIRELLA SUNSHINE Report Released Date/Time: Sep 04, 2023 12:20 PM Reporting Lab: [place] [phone] Performing Lab: [place] [phone] [place] [address] CBC PLATELET MEAN VOLUME [ENTITIC VOLUME] IN BLOOD BY AUTOMATED COUNT 10.5 fL 7.4 - 11.4 09/06 Specimen Type: BLOOD No comment entered. Ordering Provider: MIRELLA SUNSHINE Report Released Date/Time: Sep 04, 2023 12:20 PM Reporting Lab: [place] [phone] Performing Lab: [place] [id number] PROSTATE SPECIFIC ANTIGEN PROSTATE SPECIFIC AG [MASS/VOLU ME] IN SERUM OR PLASMA 0.42 ng/mL 0.00 - 4.00 09/06 Specimen Type: SERUM No comment entered. 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 Vital Sign Value Date Comments Source SYSTOLIC BLOOD PRESSURE 110 09/25/2024 08:21:35 [facility] DIASTOLIC BLOOD PRESSURE 74 09/25/2024 08:21:35 [facility] PULSE OXIMETRY 98 09/25/2024 08:21:35 [facility] WEIGHT 200.4 09/25/2024 08:21:35 [facility] BMI 31 kg/m2 09/25/2024 08:21:35 [facility] PAIN 0 09/25/2024 08:21:35 [facility] TEMPERATURE 97.2 09/25/2024 08:21:35 [facility] PULSE 65 09/25/2024 08:21:35 [facility] RESPIRATION 16 09/25/2024 08:21:35 [facility] Encounters Combined list of: 1) Encounters from Department of [facility] Affairs facilities going backup to the last 18 months, not all OR inpatient encounters are included; 2) Encounters from the Department of Defense facilities going backup to 280 months. Location Location Details Encounter Type Encounter Number Reason For Visit Attending Provider ADM Date DC Date Status Disposition Source Theater Facility OUTPATIENT [id number] 07/17 Released with Work/Duty Limitations [facility] OUTPATIENT [id number] 07/17 Released with Work/Duty Limitations [facility] OUTPATIENT [id number] 07/23 Released w/o Limitations [facility](GWO T Case Managemen t) TELE CONSULT [id number] Notes Entered by: MARLYS VERA 23 Mar 2014 0950 ------- ------- ------- ------- -- New CM referra l DEBORAH PELAEZ 03/23 Referred for Appointment [facility](G WOT Case Managem ent) [facility] Outpatient Encounter [id number] 09[facility]/P EST MOD 30-39 MIN [id number] Diagnos is: ICD-10- CM 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 DETERMINE REFRACTIVE STATE [id number] Diagnos is: ICD-10- CM H25.13 Age-rel ated nuclear catarac t, MIRTHA Salas 04/17 [place] [facility] Outpatient Encounter [id number] 09/25 [facility] Outpatient Encounter [id number] 09/25 [facility] OFFICE O/P EST MOD 30 MIN [id number] Diagnos is: ICD-10- CM E78.2 Mixed hyperli pidemia JONGA ARTURO R 09/25 [place] [facility] Outpatient Encounter [id number] 10/16 [facility] Procedures Combined list of: 1) Procedures from Department of Veterans Affairs facilities going back up to thelast 18 months, not all OR non-surgical procedures are included; 2) All procedures from the Department of Defense facilities. Procedure Procedure Type Code Date Perfomer Comments Sourc e Coordinated care fee, maintenance rate 04/04/2014 MARLYS PELAEZ [facility] Case Management, each 15 minutes 04/04/2014 DEBORAH PELAEZ [facility] COORDINATED CARE FEE, MAINTENANCE RATE 03/23/2014 [facility] Social History Combined list of available smoking, tobacco, and other social history from Department of Defense and Veterans Affairs facilities. Social History Type Response Date Comment Sourc e Tobacco smoking status NHIS VA-TOBACCO NEVER USED 09/30/2023 [facility] History of tobacco use VA-TOBACCO NEVER USED 08/25/2022 [facility] History of tobacco use VA-TOBACCO NEVER USED 09/02/2021 [facility] History of tobacco use VA-TOBACCO NEVER USED 08/29/2020 [facility] History of tobacco use VA-TOBACCO NEVER USED 08/01/2018 [facility] History of tobacco use VA-TOBACCO NEVER USED 06/29/2018 [facility] History of tobacco use LIFETIME NON-USER OF TOBACCO 09/06/2015 [facility] History of tobacco use TOBACCO [place] NON USER 6 [facility] This section is an empty social history section. DoD Plan of Care List of future care activities from Department of Veterans Affairs facilities. Additional future care activities may be listed in the Assessment and Plan section. Date/Time Care Activity Care Activity Detail Facili ty 04/16/2025 AMBULATORY - SURGERY AMBULATORY - SURGERY [facility]
--- OUTSIDE RECORDS SUMMARY | 2025-03-29 08:51 | XMS_ITS | Encounter Summary ---
Author Organization [employer] Address [id number] [address] [place] [address] Care Team Providers Care School Commissioner Name Role Phone Oral Perez MD Primary Care Provider [phone] Encounter Details Date Type Department Care Team (Late st Contact Info) Description 04/07/2019 [facility] [address] [facility] [address] [place] [phone] Sy Jones MD Social History Tobacco Use Types Packs/Day Years Used Date Smoking Tobacco: Never Smokeless Tobacco: Never Alcohol Use Standard Drinks/Week Comments No 0 (1 standard drink = 0.6 oz pur e alcohol) Childcare Answer Date Recorded Childcare Unknown 03/27/2019 Employment Answer Date Recorded Employment Unknown 03/27/2019 Sex and Gender Information Value Date Recorded Sex Assigned at Not on file Legal Sex Male 12:17 PM EDT Gender Identity Not on file Sexual Orientation Not on file documented as of this encounter Plan of Treatment Not on file documented as of this encounter Visit Diagnoses Not on filedocumented in this encounter Care Teams School Commissioner Relationship Specialty Start Date End Date Oral Perez MD PCP - General Family Medicine 10/20/18 documented as of this encounter
--- OUTSIDE RECORDS SUMMARY | 2025-03-29 08:51 | XMS_ITS | Clinical Summary ---
Author Organization [employer] Address [id number] [address] [place] [address] Care Team Providers Care Silicator Name Role Phone Oral Perez MD Primary Care Provider [phone] Allergies Active Allergy Reactions Criticality Noted Date Comments No Known Drug Allergies 01/20/2016 Other reaction(s): Unknown Medications atorvastatin (LIPITOR) 80 mg tablet Take 80 mg by mouth daily. Active metoprolol tartrate (LOPRESSOR) 25 mg tablet Take 0.5 tablets by mouth 2 (two) times a day. Active clopidogrel (PLAVIX) 75 mg tablet Take 1 tablet by mouth daily. Active glucosamine baker 2KCl-chondroit 500-400 mg tablet 1 tablet daily. Active coenzyme Q10 200 mg capsule Take 200 mg by mouth daily. Active MULTIVITAMIN ORAL Take by mouth. Active aspirin 81 mg Take 81 mg by mouth daily. Active Active Problems Problem Noted Date Diagnosed Date Presence of automatic implan table bgvdibbpprsj-rjvyzuvzkazxg-Idtgjt SQ 01/23/2016 CAD (coronary artery disease) Ventricular fibrillation Overview (11/05/2017): WITH ARREST Resolved Problems Problem Noted Date Diagnosed Date Resolved Date Atherosclerosis of autologou s vein coronary artery bypass graft 04/16/2014 02/04/2021 Cellulitis 02/04/2021 Overview (11/05/2017): RIGHT LEG Family History Medical History Relation Name Comments No Known Problems Father Cancer Mother Relation Name Status Comments Father Mother Social History Tobacco Use Types Packs/Day Years Used Date Smoking Tobacco: Never Smokeless Tobacco: Never Tobacco Cessation:Counseling Given: No Alcohol Use Standard Drinks/Week Comments Yes 0 (1 standard drink = 0.6 oz pur e alcohol) Childcare Answer Date Recorded Childcare Unknown 03/27/2019 Employment Answer Date Recorded Employment Unknown 03/27/2019 Purpose - Life Answer Date Recorded Purpose and direction in life Unknown Sex and Gender Information Value Date Recorded Sex Assigned at Not on file Legal Sex Male 12:17 PM EDT Gender Identity Not on file Sexual Orientation Not on file Last Filed Vital Signs Vital Sign Reading Time Taken Comments Blood Pressure 124/86 05/07/2021 8:31 AM EDT Pulse 58 05/07/2021 8:31 AM EDT Temperature 36.6 C (97.9 F) 12/14/2018 1:37 AM EST Respiratory Rate 17 12/14/2018 5:45 AM EST Oxygen Saturation 97% 02/04/2021 3:05 PM EDT Inhaled Oxygen Concentration - - Weight 85.7 kg (189 lb) 05/07/2021 8:31 AM EDT Height 172.7 cm (5' 8 ) 05/07/2021 8:31 AM EDT Body Mass Index 28.74 05/07/2021 8:31 AM EDT Plan of Treatment Health Maintenance Due Date Last Done Comments Depression Screening 1976 Tobacco Screening 1976 Adult BMI Screening 1982 DTaP,Tdap and Td Vaccines (1 - Tdap) 1983 Zoster (Shingles) Vaccine (1 of 2) 2014 COVID-19 Vaccine ( season) 2024, 01/08/2021 Influenza Vaccine 06/18/2025 08/05/2020, 07/19/2017 Medical Devices Not on [place] [address] [place] [address] Care Teams Silicator Relationship Specialty Start Date End Date Oral Perez MD PCP - General Family Medicine 10/20/18
--- OUTSIDE RECORDS SUMMARY | 2025-03-29 08:51 | XMS_ITS | Encounter Summary ---
Author Organization [facility] Address [address] [place] [address] Care Team Providers Care Stem Roller Name Role Phone Oral Perez MD Primary Care Provider [phone] Encounter Details Date Type Department Care Team (Late st Contact Info) Description 03/21/2025 Telephone [facility] at [facility] [address] [place] [address] Chloe Rodriguez MA Social History Tobacco Use Types Packs/Day Years Used Date Smoking Tobacco: Never Smokeless Tobacco: Never Alcohol Use Standard Drinks/Week Comments Yes 1 (1 standard drink = 0.6 oz pur e alcohol) 1 per day [place] Safety & Environment Answer Date Rec orded Fear of Current or Ex-Partner Not on file Emotionally Abused Not on file 12/09/2023 Physically Abused Not on file 12/09/2023 Sexually Abused Not on file 12/09/2023 Physically or Sexually Abused Not on file Sex and Gender Information Value Date Recorded Sex Assigned at Not on file Legal Sex Male 12:40 AM EDT Gender Identity Not on file Sexual Orientation Not on file documented as of this encounter Miscellaneous Notes * Telephone Encounter - Chloe Rodriguez MA - 03/21/2025 4:19 PM EDT Images from the original note were not included. Regarding echo result from 2025: Tali Naik, MARINO Rodriguez MA Please let him know his ECHO showed stable valve function with mild regurgitation in the mitral andtricuspid valves - continue to monitor. There does appear to be a change on the right side of his heart with some reduced function. Recommend proceed with a stress test to rule out ischemia. If he can do treadmill/myoview that would be preferred. If not, lexiscan/myoview can be done. Spoke with patient and he agrees to nuclear treadmill stress test. Order faxed to [facility]. documented in this encounter Plan of Treatment Scheduled Orders Name Type Priority Associated Diagnoses Orde r Schedule Treadmill Stress Myocardial Perfusion Imaging Cardiac Services Routine Coronary artery disease, unspecified vessel or lesion type, unspecified whether angina present, unspecified whether [place] or transplanted heart History of cardiac arrest Expected: 03/21/2025 (Approximate), Expires: 03/21/2027 documented as of this encounter Visit Diagnoses Diagnosis Coronary artery disease, unspecified vessel or lesion type, unspecified whether angina present, unspecified whether skokom[place] or transplanted heart History of cardiac arrest documented in this encounter Care Teams Stem Roller Relationship Specialty Start Date End Date Oral Perez MD [address] [place] [address] PCP - General 12/09/22 documented as of this encounter
--- OUTSIDE RECORDS SUMMARY | 2025-03-29 08:51 | XMS_ITS | Encounter Summary ---
Author Organization [employer] Address [id number] [address] [place] [address] Care Team Providers Care Seamer Name Role Phone Oral Perez MD Primary Care Provider [phone] Encounter Details Date Type Department Care Team (Late st Contact Info) Description 05/08/2021 Orders Only [facility] [address] [place] [phone] External, Scanning Provider Social History Tobacco Use Types Packs/Day Years Used Date Smoking Tobacco: Never Smokeless Tobacco: Never Alcohol Use Standard Drinks/Week Comments Yes 0 [...] on file Sexual Orientation Not on file COVID-19 Exposure Response Date Recorded In the last month, have you been in contact with someone who was confirmed or suspected to have Coronavirus / COVID-19? No / Unsure 05/07/2021 8:21 AM EDT documented as of this encounter Plan of Treatment Not on file documented as of this encounter Procedures Procedure Name Priority Date/Time Associated Diagnosis Comments DEVICE INTERROGATION Routine 05/07/2021 documented in this encounter Results * Device Interrogation (05/07/2021) Anatomical Region Laterality Modality Other us Scanning Provider External [facility] CARDIAC SERVICES O RDERABLES Final Result documented in this encounter Visit Diagnoses Not on filedocumented in this encounter Care Teams Seamer Relationship Specialty Start Date End Date Oral Perez MD PCP - General Family Medicine 10/20/18 documented as of this encounter
--- OUTSIDE RECORDS SUMMARY | 2025-03-29 08:51 | XMS_ITS | Encounter Summary ---
Author Organization [employer] Address [id number] [address] [place] [address] Care Team Providers Care Observatory Director Name Role Phone Oral Perez MD Primary Care Provider [phone] Encounter Details Date Type Department Care Team (Late st Contact Info) Description 03/29/2020 Telephone [facility] [address] [facility] [address] [place] [phone] Sy Jones MD Social History Tobacco Use [...] on filedocumented in this encounter Care Teams Observatory Director Relationship Specialty Start Date End Date Oral Perez MD PCP - General Family Medicine 10/20/18 documented as of this encounter
--- OUTSIDE RECORDS SUMMARY | 2025-03-29 08:51 | XMS_ITS | Clinical Summary ---
Author Organization [facility] Address [address] [place] [address] Care Team Providers Care Manager Contract Name Role Phone Oral Perez MD Primary Care Provider [phone] Allergies No known active allergies Medications metoprolol tartrate (Lopressor) 25 mg tablet Take 12.5 mg by mouth in the morning and at bedtime. 1/2 pill BID Active rosuvastatin (Crestor) 40 mg tablet Take 40 mg by mouth at bedtime. Active coenzyme Q-10 200 mg capsule Take 200 mg by mouth in the morning. Active loratadine (Claritin) 10 mg tablet Take 10 mg by mouth in the morning. Active multivitamin-ir ss-uchuofwl-jjv ic acid (Multivitamin 50 Plus) tablet Take 1 tablet by mouth in the morning. Active ezetimibe (Zetia) 10 mg tablet Take 10 mg by mouth in the morning. 08/25/2022 Active clopidogrel (Plavix) 75 mg tablet Take 1 tablet by mouth in the morning. Active Active Problems Problem Noted Date Diagnosed Date Acute bronchitis 08/11/2024 Age-related nuclear cataract, bilateral 08/11/20 Cervical disc disease 12/21/2023 12/21/2023 Chest pain 12/21/2023 12/21/2023 Seizure disorder 12/21/2023 12/21/2023 Encounter for immunization 07/16/202307/16 Family history of ischemic heart disease 023 07/16/2023 H/O ventricular fibrillation 07/16/2023 Mixed hyperlipidemia 07/16/2023 07/16/2023 Assessment & Plan (12/21/2023 1:35 PM EST): LDL 83 with CAD ?Zetia affordable? continue crestor 40 mg daily Regular astigmatism, bilateral 07/16/2023 0 07/16/2023 CAD (coronary artery disease) 12/09/2022 Coronary arteriosclerosis 08/19/2021 Assessment & Plan (12/21/2023 1:35 PM EST): Coronary artery disease is Continue GDMT continue risk factor modifications- heart healthy diet, regular exercise as tolerated and continue all medications. 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 01/23/2016 Assessment & Plan (12/21/2023 1:36 PM EST): Device interrogation q 6 months Encounters Date Type Department Care Team Description 03/21/[address] [phone] Chloe Rodriguez MA 02/27/2025 2:30 PM EDT Ancillary Procedure [address] [phone] Encounter for implantable defibrillator reprogramming or check 01/30/2025 1:20 PM EDT Office Visit [address] [phone] Tali Naik CNP Coronary arteriosclerosis (Primary Dx); Ventricular fibrillation (CMS/HCC); Hx of CABG; Ventricular tachycardia (CMS/HCC); Bradycardia; Mixed hyperlipidemia; Lower extremity edema; Implantable cardioverter-defibrillat or (ICD) in situ; Hx of cardiac arrest from Last 3 Months Family History Medical History Relation Name Comments CABG Father Coronary artery disease Father Atrial fibrillation Mother Relation Name Status Comments Brother Alive Father Mother Sister Alive Social History Tobacco Use Types Packs/Day Years Used Date Smoking Tobacco: Never Smokeless Tobacco: Never Tobacco Cessation:Counseling Given: Not Answered Alcohol Use Standard Drinks/Week Comments Yes 1 [...] Sign Reading Time Taken Comments Blood Pressure 121/79 01/30/2025 1:31 PM EDT Pulse 59 01/30/2025 1:31 PM EDT Temperature - - Respiratory Rate - - Oxygen Saturation 98% 01/30/2025 1:31 PM EDT Inhaled Oxygen Concentration - - Weight 91.6 kg (202 lb) 01/30/2025 1:31 PM EDT Height 172.7 cm (5' 8 ) 01/30/2025 1:31 PM EDT Body Mass Index 30.71 01/30/2025 1:31 PM EDT Plan of Treatment Health Maintenance Due Date Last Done Comments CT Colonography 1964 Colonoscopy 1964 Colorectal Cancer Screening 1964 FIT-DNA 1964 FIT 1964 FOBT 1965 Medicare Annual Wellness (AWV) 1964 Sigmoidoscopy 1964 Depression Screening 1976 IPV Vaccines (2 of 3 - Adult catch-up series) 02/14/1988 01/17/1988 COVID-19 Vaccine ( season) 2024 08/13/2021, 01/30/2021, 01/08/2021 Adult Tetanus 07/07/2031 07/07/2021, 05/18, 05/07/2012, Additional history exists Meningococcal Vaccine Aged Out 09/22/2008 , 06/23/2003, 11/19/1996 No longer eligible based on patient's age to complete this topic Zoster Vaccines Completed 07/26/2019, 08/01/2018 Pneumococcal Vaccine: Pediatrics (0 to 5 Years) and At-Risk Patients (6 to 64 Years) Completed 04/30/2022, 09/06/2015, 09/06/2015 Influenza Vaccine Completed 09/25/2024, , 08/25/2022, Additional history exists HIB Vaccines Aged Out No longer eligi ble based on patient's age to complete this topic HPV Vaccines Aged Out No longer eligi ble based on patient's age to complete this topic Meningococcal B Vaccine Aged Out No l onger eligible based on patient's age to complete this topic Rotavirus Vaccines Aged Out No longer eligible based on patient's age to complete this topic Procedures Procedure Name Priority Date/Time Associated Diagnosis Comments CARDIAC DEVICE CHECK - IN CLINIC - SUBQ ICD Routine 02/28/2025 1:05 PM EDT Encounter for implantable defibrillator reprogramming or check from Last 3 Months Results * CARDIAC DEVICE CHECK - IN CLINIC - SUBQ ICD (02/28/2025 1:05 PM EDT) Anatomical Region Laterality Modality Other Narrative 03/14/2025 12:54 AM EDT By using the attestations below, the signing clinician agrees that I have read and verify that the documentation has been personally reviewed by me and ensure that the documentation accurately reflects the encounter. Routine EP device follow up as per schedule. Please see attached note us Dean Bianchi MD CV IMPLANTABLE CARDIAC DEVICE [place] OCEDURES Final Result from Last 3 Months Insurance MEDICARE Care Teams Manager Contract Relationship Specialty Start Date End Date Oral Perez MD [address] [facility] [place] [address] PCP - General 12/09/22
--- NOTE | 2025-04-02 12:53 | P.STRESS_ITS ---
Stress Test Stress Test Requesting physician: LUCAS SHRESTHA Procedure: This was a Treadmill stress test with myocardial perfusion imaging performed at the [facility] on 03/29/2025. Intravenous line was secured. The patient was attached to electrocardiographic monitoring. Baseline vital signs and ECG were obtained. The patient exercised on the treadmill according to the Jermaine protocol. Cardiolite was administered at peak exercise. The patient then went on to obtain myocardial perfusion imaging. Total exercise time was 8 minutes and 47 seconds. The patient reached stage III of the Jermaine protocol and achieved 10.1 METS. Heart rate was 54 bpm and peak heart rate was 141 bpm representing 88% of maximal predicted heart rate. Resting blood pressure was 128/86 and peak blood pressure was 148/88. General Information: Reason for Stress Test: Abnormal echocardiogram. Cardiac History and Risk Factors: Hyperlipidemia, history of myocardial infarction, history of CABG. Resting 12 - Lead Electrocardiogram: Sinus bradycardia, cannot rule out old anterior myocardial infarct. Stress Test: Protocol: Treadmill stress, Jermaine protocol. Exercise Capacity: Good. Blood Pressure Response: Resting elevated blood pressure, appropriate blood pressure response to exercise. Rhythm: Sinus rhythm with no arrhythmia. ST - Response: [address] segment depression in V4, V5 and V6 with exercise, resolved during recovery. Patient Response: No chest pain or shortness of breath. Interpretation: 1. Positive exercise stress test for ischemic ST changes. 2. Henning treadmill score of +3.5 is associated with intermediate risk for long- term cardiac events. 3. Myocardial perfusion images will be reported separately.
== END 2025-03-29 08:48 | disposition home or self-care (01) ==
LOC: NM 08:49
PROVIDERS: PCP Family Medicine; Visit Provider Nurse Practitioner Family
DX: I25.10 Atherosclerotic heart disease of native coronary artery without angina pectoris (principal); Z86.74 Personal history of sudden cardiac arrest
CPT/HCPCS: 78452; 93017; A9500